=== PATIENT | male | born 1945 | race Caucasian/White ===

== ENCOUNTER 2018-10-26 11:26 | Inpatient (IN) | payer MEDICARE, OTHER, SELFPAY ==
[2018-10-26] VITALS (17 sets, daily range): BP systolic 117–137; BP diastolic 64–79; PULSE 88–109; RESP 18–28; TEMP 36.6–38.2; O2SAT 84–94; BMI 25.0
--- NOTE | 2018-10-26 11:46 | EKG12_ITS ---
Test Reason : GEN ILLNESS Blood Pressure : / mmHG Vent. Rate : 091 BPM Atrial Rate : 091 BPM P-R Int : 144 ms QRS Dur : 080 ms QT Int : 352 ms P-R-T Axes : 059 061 062 degrees QTc Int : 432 ms Normal sinus rhythm Nonspecific ST abnormality Abnormal ECG Confirmed by RANJITH REYEZ, GEORGIANA ([id number]), associate editor ARIEL RANGEL ([id number]) on 10/30/2018 4:55:21 PM Referred By: EZEQUIEL Confirmed By:GEORGIANA KASPER MD
--- NOTE | 2018-10-26 11:46 | RAD_ITS ---
STUDY: X-RAY CHEST REASON FOR EXAM: Male, 73 years old. Productive cough, shortness of breath and weakness. TECHNIQUE: PA and lateral views of the chest. COMPARISON: None. FINDINGS: EKG electrodes are seen. Increased markings are seen at the right lung base with areas of confluence suggestive of atelectasis and/or infiltrate. Blunting of the right costophrenic angle. Mild increased markings at the left lung base as well. Normal size heart. Normal mediastinum and alfredo. Normal visualized pulmonary arteries. There is atherosclerotic calcification of the aortic arch with tortuosity. There are diffuse degenerative changes of the visualized thoracic spine. Normal visualized ribs, clavicles, and shoulders. There is no demonstrated abnormality of the visualized soft tissue structures of the upper abdomen. RAD/Chest PA and Lateral IMPRESSION: Findings suggestive of right basilar atelectasis and/or infiltrate and mild atelectasis at the left lung base. Blunting of the right costophrenic angle. Electronically Signed: Glenroy Severino MD at 12:44 EST , Service support ,
[2018-10-26] MEDS: Ipratropium/Albuterol Sulfate 3 ML AMPUL.NEB INHALATION ×3 (12:04→23:13)
--- NOTE | 2018-10-26 12:07 | ED.RN ---
PT'S SPO2 88% ON ROOM AIR, PLACED ON 2 LITERS NC.
[2018-10-26 12:16] LABS: Absolute Lymphocyte Count 0.89 X10^3/ul (0.83-4.51); Basophil# 0.02 X10^3/uL; Basophil% 0.2 % (0-1); Eosinophil# 0.01 X10^3/uL; Eosinophils% 0.1 % (0-5); Hematocrit 42.3 % (40-54); Hemoglobin 13.6 g/dl (13.0-16.5); Lymphocyte # 0.89 X10^3/ul (4.0); Lymphocyte % 10.2 % (19-41); Mean Corp Hgb Conc 32.2 g/gl (32-36); Mean Corpuscular Hgb 28.6 pg (27.0-32.0); Mean Corpuscular Volume 89.1 fL (80-94); Mean Platelet Vol. 10.2 fl (6.2-12.0); Monocyte# 0.77 X10^3/uL; Monocyte% 8.9 % (0-10); Neutrophil # 6.97 X10^3/uL (2.7-7.7); Neutrophil % 80.3 % (47-70); Platelet Count 193 K/mm3 (150-450); Red Blood Count 4.75 M/mm3 (4.6-6.2); White Blood Count 8.7 K/mm3 (4.4-11.0)
--- NOTE | 2018-10-26 12:21 | ED.DCSUM_ITS ---
- ER Visit Summary Date of Service: 10/26/18 Chief Complaint: [] Runny nose harsh cough since Tuesday low pulse ox at urgent care History of Present Illness: The patient is a 73 M [] seen at urgent care today because of the above found to have low pulse ox of 88% after therapy 85%, x-ray shows bibasilar atelectasis, he denies history of COPD HI PE or DVT he indicates he is feeling fine Tuesday, and got sick with what sounds like a URI around Tuesday/ he has not had a flu vaccination he is p.o. intake has been reduced to solids he believes he is taking significant normal amounts of liquids bowel and bladder habits been normal cough is generally dry nonproductive, prior history for heavy smoking for years quit a few years ago per the but no history of COPD Physical Examination: [] Sat is 88% on room air he is afebrile General, no distress resting comfortably HEENT is generally unremarkable The neck is supple no adenopathy Cardiovascular, regular rate and rhythm Lungs, wheezing and rhonchi Abdomen, soft nontender Extremities, no clubbing cyanosis or edema Neurologic, awake alert answering questions appropriately moving all 4 extremities Test Results: [] Emergency Department Course and Treatment: [] Aerosols, screening labs IV fluids, the EKG screening labs generally unremarkable see those reports, chest x-ray shows appears to be and could be by lobar infiltrates after aerosols and therapy and IV fluids he was started IV antibiotics, he dropped his sats to 88% on room air is not known to require oxygen given the duration of his symptoms Treatment Plan: [] Disposition: [] Admit stable Impression: [] Lobar pneumonia, hypoxemia This note was generated with [employer] dictation software. It may contain incorrect words, spelling, and punctuation that were not noted in review of the chart prior to signing ED Disposition - Plan for ED Patient: Referrals: Suhail Elam MD [STAFF PHYSICIAN] -
[2018-10-26 12:23] LABS: POSITIVE COUNT NO; POSITIVE DIFFERENTIAL NO; POSITIVE MORPHOLOGY NO
[2018-10-26 12:27] LABS: Anion Gap 10 (5-15); BUN 28 mg/dL (7-18); BUN/Creat Ratio 29.4 RATIO (10-20); Chloride 101 mmol/L (98-107); Creatinine, Serum 0.95 mg/dL (0.70-1.30); EST Glomerular Filtration Rate 83 mL/min (>60); Est Glom Filt Rate - Afr Amer 100 mL/min (>60); Estimated Creatinine Clearance 64.36 ml/min; Glucose 98 mg/dL (74-106); Potassium 3.8 mmol/L (3.5-5.1); Sodium Level 137 mmol/L (136-145)
[2018-10-26 12:40] LABS: BNP,B-Type NATRIURETIC PEPTIDE 24.6 pg/mL (0-100)
--- NOTE | 2018-10-26 16:09 | NURSING ---
MED SURG COPD VS AWA OSPINA
--- NOTE | 2018-10-26 16:13 | PCM.HP.STD ---
Problem List (1) Tobacco abuse Status: Chronic (2) Benign essential HTN Status: Chronic History of Present Illness Date of Admission: 10/26/18 Chief Complaint: Shortness of breath, cough, fatigue The patient is a 73 year old M with PMH as below who presents after 5 days of shortness of breath, cough, fatigue. He states that he was doing well last week and then all of a sudden on Tuesday he developed shortness of breath and a cough. The cough has been mildly productive with yellow sputum only. He denies having any fevers or chills. He also progressively became more fatigued during the week and today decided to go see an urgent care for evaluation and when he arrived there they did a chest x-ray and said that he had atelectasis in his right base however when he took his vital signs he was hypoxic to 83% so they sent him to the ER. In the ER he was found to be hypoxic to about 87% and was started on oxygen via nasal cannula. Which he is not on at home. He does note that he smoked for the better part of 50 years, and he does not carry a diagnosis of COPD. He is afebrile, without a leukocytosis and the chest x-ray demonstrated possible atelectasis versus infiltrate on the right. Past Medical History Past Medical History (Chronic Problems): Chronic Problems Tobacco abuse (Chronic) Hx of renal calculi (Chronic) Benign essential HTN (Chronic) Allergies ibuprofen Allergy (Verified 10/26/18 11:27) Swelling acetaminophen [From Darvocet-N] Adverse Reaction (Verified 10/26/18 11:27) Nausea hydrochlorothiazide Adverse Reaction (Verified 10/26/18 11:27) Upset Stomach hydroxychloroquine sulfate [From Plaquenil] Adverse Reaction (Verified 10/26/18 11:27) Upset Stomach ketorolac tromethamine [From Toradol] Adverse Reaction (Verified 10/26/18 11:27) Upset Stomach piroxicam Adverse Reaction (Verified 10/26/18 11:27) Upset Stomach propoxyphene napsylate [From Darvocet-N] Adverse Reaction (Verified 10/26/18 11:27) Nausea ARTHRITIS MEDS Allergy (Uncoded 10/26/18 11:27) Upset Stomach Home Medications: Ambulatory Orders Medication Instructions Recorded Amlodipine [Norvasc] 10 mg PO DAILY 06/28/14 Atorvastatin Calcium 10 mg PO DAILY 10/26/18 Surgical History: total hip arthroplasty Lives: Spouse/ Significant Other Smoking Status: Former smoker Tobacco Use: Cigarettes Alcohol: None Drugs: None - *Family History Maternal History Items: No pertinent history Paternal History Items: No pertinent history Review of Systems Constitutional: Reports: Fatigue. Denies: Chills, Fever HEENT: Denies: Head Aches, Sinus Congestion, Sinus Drainage Cardiovascular: Denies: Chest Pain, Palpitations Respiratory: Reports: Cough, Shortness of Breath. Denies: Shortness of breath at rest, Sputum production Gastrointestinal: Denies: Abdominal Pain, Nausea, Vomiting Genitourinary: Denies: Dysuria Musculoskeletal: Denies: Joint Pain, Joint Tenderness Skin: Denies: Rash, Wounds Neurological: Denies: Numbness, Tingling, Focal weakness Psychiatric: Denies: Anxiety, Depression Hematologic/ Lymphatic: Denies: Easy Bruising, Easy Bleeding VTE Information - Inpt Only VTE Present on Admission: No - Physical Exam General: Alert, Oriented x3, Cooperative, No apparent distress HEENT: Atraumatic, PERRLA, EOMI, Normocephalic Oral: Dry Mucosa Neck: Supple, No JVD, Trachea Midline Lungs: Clear to auscultation, Normal air movement, No rhonchi, No wheeze, No rales, Diminished - Right greater than left Cardiovascular: Regular rate, Regular Rhythm, Normal S1, Normal S2, No murmurs Abdomen: Soft, Non Tender, Non-Distended, No Hepato-splenomegaly Extremities: No edema, Capillary Refill Less than 3 Seconds Skin: No rashes, No breakdown Neurological: Neuro grossly intact, Sensory exam intact to light touch and pain Psych/Mental Status: Normal Affect, Appropriate Vital Signs Temp Pulse Resp BP Pulse Ox 97.6 F L 94 28 H 136/79 H 90 10/26/18 16:00 10/26/18 16:00 10/26/18 16:00 10/26/18 16:00 10/26/18 16:00 Oxygen Flow Rate (L/min) 4 Oxygen Delivery Method Nasal Cannula Weight: 154 lb 15.759 oz Body Mass Index (BMI) 25.0 Microbiology Past 72 Hours 10/26/18 12:15 Influenza Types A,B Direct FA (JENNIFER) - Final Mucosa - Nose Laboratory Tests Past 24 Hrs 10/26/18 10/26/18 10/26/18 12:00 12:00 12:00 WBC 8.7 RBC 4.75 Hgb 13.6 Hct 42.3 MCV 89.1 MCH 28.6 MCHC 32.2 RDW 13.0 RDW Differential 42.0 Plt Count 193 MPV 10.2 Immature Gran % (Auto) 0.300 Neut % (Auto) 80.3 H Lymph % (Auto) 10.2 L Mcd[place] % (Auto) 8.9 Eos % (Auto) 0.1 Baso % (Auto) 0.2 Absolute Neuts (auto) 7.0 Absolute Lymphs (auto) 0.89 Total Counted Not Reportable Sodium 137 Potassium 3.8 Chloride 101 Carbon Dioxide 26.0 Anion Gap 10 BUN 28 H Creatinine 0.95 Estim Creat Clear Calc 64.36 Est GFR (MDRD) Af Amer 100 Est GFR (MDRD) Non-Af 83 BUN/Creatinine Ratio 29.4 H Glucose 98 Calcium 9.0 Troponin I < 0.015 B-Natriuretic Peptide 24.6 Assessment/Plan 1. Acute hypoxic respiratory failure secondary to community acquired pneumonia versus respiratory virus -We will continue with DuoNeb every 4 -Nasal cannula at 3 L wean as able -Respiratory panel is pending as is urine strep antigen and Legionella, influenza negative -No steroids at the moment since he does not have any expiratory wheezing -Continue with Rocephin and azithromycin -He will need PFTs as an outpatient once this current disease process resolves -BNP and troponin are negative in the ER 2. HTN/HLD -SBP stable in the 120s-130s -Continue with Norvasc and Lipitor 3. History of prostate cancer -he has undergone radiation and his PSAs have been stable DVT: Lovenox/SCDs Code Visit Inpatient E&M: 99618 Init Hosp L3
[2018-10-26] MEDS: Ceftriaxone 1 GM/50 ML BAG IV (17:15)
[2018-10-26] MEDS: guaiFENesin 1,200 MG Tablet 1200 MG PO (21:52)
[2018-10-26] MEDS: Atorvastatin Calcium 10 MG Tablet PO (21:52)
[2018-10-26] MEDS: Acetaminophen 500 MG Tablet 1000 MG PO (21:56)
--- NOTE | 2018-10-26 22:25 | NURSING ---
this RN took prn Ibuprofen order for fever. Order not entered d/t pt refusal (adverse reaction of ankle swelling.)
[2018-10-26] MEDS: 0.9% Normal Saline 1,000 ML 100 ML IV (22:58)
[2018-10-26 23:36] LABS: Allen Test POS; Base Excess -3 mmol/L (-2 to +2); Bicarbonate 21.8 mmol/L (22-26); Blood Gas Specimen Type ART; FI02 50; PO2 66 mmHG (75-100); SITE R Radial; SO2 93 % (95-99); Time Given 2315; Total Carbon Dioxide 23 mmol/L; pH 7.39 (7.35-7.45)
[2018-10-27] VITALS (11 sets, daily range): BP systolic 113–127; BP diastolic 66–73; PULSE 79–93; RESP 16–18; TEMP 36.6–37.1; O2SAT 88–95
[2018-10-27] MEDS: Acetaminophen 500 MG Tablet 1000 MG PO ×3 (05:17→22:04)
[2018-10-27 06:44] LABS: Absolute Lymphocyte Count 0.76 X10^3/ul (0.83-4.51); Absolute Neutrophil Count 6.7 X10^3/uL (2.0-7.7); Basophil# 0.02 X10^3/uL; Basophil% 0.2 % (0-1); Eosinophil# 0.03 X10^3/uL; Eosinophils% 0.4 % (0-5); Hematocrit 35.2 % (40-54); Hemoglobin 11.6 g/dl (13.0-16.5); Lymphocyte # 0.76 X10^3/ul (4.0); Lymphocyte % 9.3 % (19-41); Mean Corpuscular Hgb 29.4 pg (27.0-32.0); Mean Corpuscular Volume 89.3 fL (80-94); Mean Platelet Vol. 10.2 fl (6.2-12.0); Monocyte# 0.61 X10^3/uL; Monocyte% 7.4 % (0-10); Neutrophil # 6.73 X10^3/uL (2.7-7.7); Neutrophil % 82.2 % (47-70); Platelet Count 185 K/mm3 (150-450); RBC Distribution Width CV 12.8 % (11.6-14.6); RBC Distribution Width SD 40.9 fl (35.1-43.9); Red Blood Count 3.94 M/mm3 (4.6-6.2); White Blood Count 8.2 K/mm3 (4.4-11.0)
[2018-10-27 06:46] LABS: POSITIVE COUNT NO; POSITIVE DIFFERENTIAL NO; POSITIVE MORPHOLOGY NO
[2018-10-27 06:50] LABS: Anion Gap 9 (5-15); BUN 20 mg/dL (7-18); BUN/Creat Ratio 29.8 RATIO (10-20); Calcium,Total 8.2 mg/dL (8.5-10.1); Chloride 105 mmol/L (98-107); Creatinine, Serum 0.67 mg/dL (0.70-1.30); EST Glomerular Filtration Rate 124 mL/min (>60); Est Glom Filt Rate - Afr Amer 150 mL/min (>60); Estimated Creatinine Clearance 61.14 ml/min; Glucose 91 mg/dL (74-106); Potassium 3.3 mmol/L (3.5-5.1); Sodium Level 138 mmol/L (136-145)
[2018-10-27] MEDS: Ipratropium/Albuterol Sulfate 3 ML AMPUL.NEB INHALATION ×4 (06:54→19:22)
[2018-10-27] MEDS: Enoxaparin 40 MG/0.4 ML Syringe SC (09:38)
[2018-10-27] MEDS: Ceftriaxone 1 GM/50 ML BAG IV (09:38)
[2018-10-27] MEDS: guaiFENesin 1,200 MG Tablet 1200 MG PO ×2 (09:38→22:04)
--- NOTE | 2018-10-27 13:11 | CASEMGMT ---
SW spoke w/pt, and daughter in room, asked if they can bring in POA and LW papers when able, as they are not on the chart. Pt and family state understanding. DAHIANA Noble, REGROOVER
[2018-10-27] MEDS: 0.9% NaCl Peripheral Flush Adult/Peds IV (14:12)
--- NOTE | 2018-10-27 14:21 | CASEMGMT ---
RN CM Assessment Introduced role of RN CM to patient, /family at bedside. Patient is alert, oriented and able to participate in RN CM Assessment. Care providers, pharmacy, and demographics verified. Presentation: Admitted for URI, Hypoxia 87% in ER, 83% at UC. CC: SOB, Cough, Fatigue. PCP: Dr Deni Verma Specialists: Uro- Dr Raghu Fritz, GI- Dr Bryan Preferred Pharmacy: [facility] Insurance: Medicare A&B, [employer] Prescription Benefit: Yes LNOK: Sonia Moore Living Arrangements: Retired, Lives with in a SS Home, Independent with ambulation and ADL's. Transportation: Patient drives, to drive on [place] [address] [phone]. DME: None in past, prefer to use DME Company in network with secondary insurance- AB [employer]asty Search for [facility]- [facility] [place] HH: [facility] in past, prefers what is in network with insurance SNF: None in past, no preference on facility. DC PLAN: Home with with possible Home O2. Explained to patient and family about Home O2, acknowledge and agree. Provided [facility] [place]'s contact information, all questions/concerns addressed. Yandel Campbell RNCM
--- NOTE | 2018-10-27 15:41 | PCM.PN.HOSP ---
Subjective: Patient was seen and examined. Admits to feeling improved. Remains on 4 L of oxygen. Coughing up yellowish sputum. Denies any fever or chills or dizziness or chest pain. Vitals/I&O's: Vital Signs Temp Pulse Resp BP Pulse Ox 97.9 F 89 18 113/73 94 10/27/18 14:10 10/27/18 14:10 10/27/18 14:10 10/27/18 14:10 10/27/18 14:10 Oxygen Flow Rate (L/min) 2 Oxygen Delivery Method Nasal Cannula Weight: 70 kg Body Mass Index (BMI) 25.0 Intake and Output for Last 24 Hours 10/25/18 10/26/18 10/27/18 23:59 23:59 23:59 Intake Total 2440 / 2440 Balance 2440 / 2440 General: Alert, Oriented x3, Cooperative, No apparent distress, - HEENT: Atraumatic, PERRLA, EOMI, Normocephalic Oral: Moist Mucosa - 4 L of oxygen Neck: Supple Lungs: Diminished, Rales - At the right lower lung sounds Cardiovascular: Regular rate, Regular Rhythm, Normal S1, Normal S2, No murmurs Abdomen: Bowel Sounds Present, Soft, Non Tender, Non-Distended, No Hepato-splenomegaly Extremities: No edema Skin: No rashes, No breakdown Musculoskeletal: No Tenderness to Palpation of Joints or Extremities Lymphatic: No Cervical, Supraclavicular, or Inguinal Adenopathy Neurological: Cranial nerves II-XII grossly intact, Neuro grossly intact Psych/Mental Status: Normal Affect, Appropriate Microbiology Past 72 Hours 10/26/18 22:30 Mucosa - Nasopharyngeal Respiratory Panel (PCR) - Final Human [place] 10/26/18 19:31 Urine, Clean Catch Streptococcus pneumoniae Antigen (M - Final 10/26/18 19:31 Urine, Clean Catch Legionella Antigen - Final 10/26/18 12:15 Mucosa - Nose Influenza Types A,B Direct FA (JENNIFER) - Final Laboratory Results 10/26/18 17:15: Lactic Acid 1.0 10/26/18 23:29: Specimen Type ART, Sample Site R Radial, pH 7.39, Bicarbonate Actual 21.8 L, POC Total CO2 23, Base Excess -3 L, O2 Saturation 93 L, O2 % 50, ABG pCO2 36.0, ABG pO2 66 L, Griffin Test POS, O2 Delivery Device Vent Mask, Blood Gas Notified Whom ALYSA REYEZ, Blood Gas Notified Time 2312 10/27/18 06:25: WBC 8.2, RBC 3.94 L, Hgb 11.6 L, Hct 35.2 L, MCV 89.3, MCH 29.4, MCHC 33.0, RDW 12.8, RDW Differential 40.9, Plt Count 185, MPV 10.2, Immature Gran % (Auto) 0.500, Neut % (Auto) 82.2 H, Lymph % (Auto) 9.3 L, [place] % (Auto) 7.4, Eos % (Auto) 0.4, Baso % (Auto) 0.2, Absolute Neuts (auto) 6.7, Absolute Lymphs (auto) 0.76 L, Total Counted Not Reportable 10/27/18 06:25: Sodium 138, Potassium 3.3 L, Chloride 105, Carbon Dioxide 24.0, Anion Gap 9, BUN 20 H, Creatinine 0.67 L, Estim Creat Clear Calc 61.14, Est GFR (MDRD) Af Amer 150, Est GFR (MDRD) Non-Af 124, BUN/Creatinine Ratio 29.8 H, Glucose 91, Calcium 8.2 L Current Medications Acetaminophen (Tylenol) 1,000 mg PO Q8 [facility] Last Admin: 10/27/18 14:11 Dose: 1,000 mg Albuterol/Ipratropium (Duoneb) 3 ml INHALATION Q4HWA.RT [facility] Last Admin: 10/27/18 15:06 Dose: 3 ml Amlodipine Besylate (Norvasc) 10 mg PO DAILY [facility] Atorvastatin Calcium (Lipitor) 10 mg PO QHS [facility] Last Admin: 10/26/18 21:52 Dose: 10 mg Cholecalciferol (Vitamin D) 1,000 unit PO DAILY [facility] Docusate Sodium (Colace) 100 mg PO DAILY [facility] Enoxaparin Sodium (Lovenox) 40 mg SC DAILY@1000 [facility] Last Admin: 10/27/18 09:38 Dose: 40 mg Folic [facility] ([facility] Acid) [facility] Guaifenesin (Mucinex) 1,200 mg PO BID [facility] Last Admin: 10/27/18 09:38 Dose: 1,200 mg Azithromycin 500 mg/ Dextrose 255 mls @ 250 mls/hr IV Q24 [facility] Last Admin: 02/22/19 10:37 Dose: 250 mls/hr Ceftriaxone Sodium (Rocephin) 1 gm in 50 mls @ 100 mls/hr IV Q24 [facility] Last Admin: 10/27/18 09:38 Dose: 100 mls/hr Magnesium Hydroxide (Milk Of Magnesia) 30 ml PO DAILY PRN PRN PRN Reason: Constipation Sodium Chloride () 5 - 15 ml IV UD PRN PRN Reason: SALINE FLUSH Last Admin: 10/27/18 14:12 Dose: 10 ml Medical Necessity - Tobacco Use Smoking Status: Former smoker Tobacco Use: Cigarettes Assessment/Plan 73-year-old male with past medical history of hypertension, hyperlipidemia, history of kidney stones comes in with complaints of cough and shortness of breath and has been managed as acute respiratory failure secondary to community-acquired pneumonia. 1. Acute hypoxic respiratory failure secondary to community-acquired pneumonia and acute human [place] pneumo virus bronchitis Patient is not on oxygen at home, currently on 4 L of oxygen, will continue on breathing treatment, continue to wean off oxygen, encourage use of incentive spirometer 2. Community-acquired pneumonia versus Human meta pneumo viral bronchitis, questionable infiltrate seen on x-ray, patient feels clinically improved Continue azithromycin and ceftriaxone for now, repeat chest x-ray in a.m. 3. Hypokalemia, replaced 4. Hypertension, continue home medication 5. Hyperlipidemia, statin 6. DVT prophylaxis with Lovenox subcu 7. Disposition: Possible DC in a.m. if patient is improved Code Visit Inpatient E&M: 57757 Subs Hosp L2
--- NOTE | 2018-10-27 15:51 | PN_ITS ---
Subjective: Patient was seen and examined. Admits to feeling improved. Remains on 4 L of oxygen. Coughing up yellowish sputum. Denies any fever or chills or dizziness or chest pain. Vitals/I&O's: Vital Signs Temp Pulse Resp BP Pulse Ox 97.9 F 89 18 113/73 94 10/27/18 14:10 10/27/18 14:10 10/27/18 14:10 10/27/18 14:10 10/27/18 14:10 Oxygen Flow Rate (L/min) 2 Oxygen Delivery Method Nasal Cannula Weight: 70 kg Body Mass Index (BMI) 25.0 Intake and Output for Last 24 Hours 10/25/18 10/26/18 10/27/18 23:59 23:59 23:59 Intake Total 2440 / 2440 Balance 2440 / 2440 General: Alert, Oriented x3, Cooperative, No apparent distress, - HEENT: Atraumatic, PERRLA, EOMI, Normocephalic Oral: Moist Mucosa - 4 L of oxygen Neck: Supple Lungs: Diminished, Rales - At the right lower lung sounds Cardiovascular: Regular rate, Regular Rhythm, Normal S1, Normal S2, No murmurs Abdomen: Bowel Sounds Present, Soft, Non Tender, Non-Distended, No Hepato- splenomegaly Extremities: No edema Skin: No rashes, No breakdown Musculoskeletal: No Tenderness to Palpation of Joints or Extremities Lymphatic: No Cervical, Supraclavicular, or Inguinal Adenopathy Neurological: Cranial nerves II-XII grossly intact, Neuro grossly intact Psych/Mental Status: Normal Affect, Appropriate Microbiology Past 72 Hours 10/26/18 22:30 Mucosa - Nasopharyngeal Respiratory Panel (PCR) - Final Human [place] 10/26/18 19:31 Urine, Clean Catch Streptococcus pneumoniae Antigen (M - Final 10/26/18 19:31 Urine, Clean Catch Legionella Antigen - Final 10/26/18 12:15 Mucosa - Nose Influenza Types A,B Direct FA (JENNIFER) - Final Laboratory Results 10/26/18 17:15: Lactic Acid 1.0 10/26/18 23:29: Specimen Type ART, Sample Site R Radial, pH 7.39, Bicarbonate Actual 21.8 L, POC Total CO2 23, Base Excess -3 L, O2 Saturation 93 L, O2 % 50, ABG pCO2 36.0, ABG pO2 66 L, Griffin Test POS, O2 Delivery Device Vent Mask, Blood Gas Notified Whom ALYSA REYEZ, Blood Gas Notified Time 2317 10/27/18 06:25: WBC 8.2, RBC 3.94 L, Hgb 11.6 L, Hct 35.2 L, MCV 89.3, MCH 29.4, MCHC 33.0, RDW 12.8, RDW Differential 40.9, Plt Count 185, MPV 10.2, Immature Gran % (Auto) 0.500, Neut % (Auto) 82.2 H, Lymph % (Auto) 9.3 L, [place] % (Auto) 7.4, Eos % (Auto) 0.4, Baso % (Auto) 0.2, Absolute Neuts (auto) 6.7, Absolute Lymphs (auto) 0.76 L, Total Counted Not Reportable 10/27/18 06:25: Sodium 138, Potassium 3.3 L, Chloride 105, Carbon Dioxide 24.0, Anion Gap 9, BUN 20 H, Creatinine 0.67 L, Estim Creat Clear Calc 61.14, Est GFR (MDRD) Af Amer 150, Est GFR (MDRD) Non-Af 124, BUN/Creatinine Ratio 29.8 H, Glucose 91, Calcium 8.2 L Current Medications Acetaminophen (Tylenol) 1,000 mg PO Q8 [facility] Last Admin: 10/27/18 14:11 Dose: 1,000 mg Albuterol/Ipratropium (Duoneb) 3 ml INHALATION Q4HWA.RT [facility] Last Admin: 10/27/18 15:06 Dose: 3 ml Amlodipine Besylate (Norvasc) 10 mg PO DAILY [facility] Atorvastatin Calcium (Lipitor) 10 mg PO QHS [facility] Last Admin: 10/26/18 21:52 Dose: 10 mg Cholecalciferol (Vitamin D) 1,000 unit PO DAILY [facility] Docusate Sodium (Colace) 100 mg PO DAILY [facility] Enoxaparin Sodium (Lovenox) 40 mg SC DAILY@1000 [facility] Last Admin: 10/27/18 09:38 Dose: 40 mg [facility]olic [facility] ([facility] Acid) [facility] Guaifenesin (Mucinex) 1,200 mg PO BID [facility] Last Admin: 10/27/18 09:38 Dose: 1,200 mg Azithromycin 500 mg/ Dextrose 255 mls @ 250 mls/hr IV Q24 [facility] Last Admin: 02/22/19 10:37 Dose: 250 mls/hr Ceftriaxone Sodium (Rocephin) 1 gm in 50 mls @ 100 mls/hr IV Q24 [facility] Last Admin: 10/27/18 09:38 Dose: 100 mls/hr Magnesium Hydroxide (Milk Of Magnesia) 30 ml PO DAILY PRN PRN PRN Reason: Constipation Sodium Chloride () 5 - 15 ml IV UD PRN PRN Reason: SALINE FLUSH Last Admin: 10/27/18 14:12 Dose: 10 ml Medical Necessity - Tobacco Use Smoking Status: Former smoker Tobacco Use: Cigarettes Assessment/Plan 73-year-old male with past medical history of hypertension, hyperlipidemia, history of kidney stones comes in with complaints of cough and shortness of breath and has been managed as acute respiratory failure secondary to community- acquired pneumonia. 1. Acute hypoxic respiratory failure secondary to community-acquired pneumonia and acute human [place] pneumo virus bronchitis Patient is not on oxygen at home, currently on 4 L of oxygen, will continue on breathing treatment, continue to wean off oxygen, encourage use of incentive spirometer 2. Community-acquired pneumonia versus Human meta pneumo viral bronchitis, questionable infiltrate seen on x-ray, patient feels clinically improved Continue azithromycin and ceftriaxone for now, repeat chest x-ray in a.m. 3. Hypokalemia, replaced 4. Hypertension, continue home medication 5. Hyperlipidemia, statin 6. DVT prophylaxis with Lovenox subcu 7. Disposition: Possible DC in a.m. if patient is improved Code Visit Inpatient E&M: 24094 Subs Hosp L2
[2018-10-27] MEDS: Folic Acid 1 MG Tablet 2 MG PO (16:56)
[2018-10-27] MEDS: amLODIPine 10 MG Tablet PO (16:56)
[2018-10-27] MEDS: Docusate Sodium 100 MG Capsule PO (16:56)
[2018-10-27] MEDS: Atorvastatin Calcium 10 MG Tablet PO (16:59)
[2018-10-28 02:14] VITALS: BP 121/64; PULSE 78; RESP 18; TEMP 36.9; O2SAT 94
--- NOTE | 2018-10-28 05:40 | RAD_ITS ---
STUDY: X-RAY CHEST REASON FOR EXAM: Male, 73 years old. Shortness of breath, dyspnea TECHNIQUE: PA and lateral views of the chest. COMPARISON: 10/26/2018 FINDINGS: Right hemidiaphragm remains elevated. Linear parenchymal densities in both lung bases again identified with increased parenchymal opacity just above the left hemidiaphragm as compared to the prior study. There is no demonstrated pleural abnormality. Normal size heart. Normal mediastinum and alfredo. Normal visualized pulmonary arteries. There is atherosclerotic calcification of the aortic arch with tortuosity. There is demineralization of the osseous structures. Normal visualized ribs, clavicles, and shoulders. There is no demonstrated abnormality of the visualized soft tissue structures of the upper abdomen. RAD/Chest PA and Lateral IMPRESSION: 1. Suspect developing infiltrate or atelectasis in the left lung base. 2. Underlying basilar fibrotic changes. Electronically Signed: Galen Navarro MD at 13:19 EST , Service support ,
[2018-10-28] MEDS: Acetaminophen 500 MG Tablet 1000 MG PO (05:53)
[2018-10-28 07:06] LABS: Absolute Lymphocyte Count 0.98 X10^3/ul (0.83-4.51); Absolute Neutrophil Count 5.9 X10^3/uL (2.0-7.7); Basophil# 0.03 X10^3/uL; Basophil% 0.4 % (0-1); Eosinophil# 0.06 X10^3/uL; Eosinophils% 0.8 % (0-5); Hematocrit 36.4 % (40-54); Hemoglobin 11.6 g/dl (13.0-16.5); Lymphocyte # 0.98 X10^3/ul (4.0); Lymphocyte % 12.9 % (19-41); Mean Corp Hgb Conc 31.9 g/gl (32-36); Mean Corpuscular Hgb 28.6 pg (27.0-32.0); Mean Corpuscular Volume 89.9 fL (80-94); Mean Platelet Vol. 10.5 fl (6.2-12.0); Monocyte# 0.56 X10^3/uL; Monocyte% 7.3 % (0-10); Neutrophil # 5.91 X10^3/uL (2.7-7.7); Neutrophil % 77.6 % (47-70); POSITIVE COUNT NO; POSITIVE DIFFERENTIAL NO; POSITIVE MORPHOLOGY NO; Platelet Count 226 K/mm3 (150-450); RBC Distribution Width CV 13.3 % (11.6-14.6); RBC Distribution Width SD 43.6 fl (35.1-43.9); Red Blood Count 4.05 M/mm3 (4.6-6.2); White Blood Count 7.6 K/mm3 (4.4-11.0)
[2018-10-28 07:14] LABS: Anion Gap 8 (5-15); BUN 15 mg/dL (7-18); BUN/Creat Ratio 20.4 RATIO (10-20); Calcium,Total 8.7 mg/dL (8.5-10.1); Chloride 106 mmol/L (98-107); Creatinine, Serum 0.74 mg/dL (0.70-1.30); EST Glomerular Filtration Rate 111 mL/min (>60); Est Glom Filt Rate - Afr Amer 135 mL/min (>60); Estimated Creatinine Clearance 61.14 ml/min; Glucose 90 mg/dL (74-106); Potassium 3.6 mmol/L (3.5-5.1); Sodium Level 142 mmol/L (136-145)
[2018-10-28 07:45] VITALS: BP 114/70; PULSE 82; RESP 18; TEMP 36.4; O2SAT 92
[2018-10-28] MEDS: Ipratropium/Albuterol Sulfate 3 ML AMPUL.NEB INHALATION ×2 (07:49→12:16)
[2018-10-28 07:50] VITALS: PULSE 80; RESP 16; O2SAT 91
[2018-10-28] MEDS: Ceftriaxone 1 GM/50 ML BAG IV (09:28)
[2018-10-28] MEDS: 0.9% NaCl Peripheral Flush Adult/Peds IV (09:28)
[2018-10-28] MEDS: Enoxaparin 40 MG/0.4 ML Syringe SC (09:28)
[2018-10-28] MEDS: guaiFENesin 1,200 MG Tablet 1200 MG PO (09:33)
--- NOTE | 2018-10-28 11:11 | PCM.DC ---
- Discharge Diagnoses Reason(s) for Visit for Discharge Instructions: Cough, shortness You will use the following diet at home:: Cardiac Your food should be the consistency of: Regular Your liquids should be the consistency of: Regular/Thin Discharge Activity: Return to Normal Activity Additional Instructions: You are being discharged on oxygen. Stay away from open flames whilst on the oxygen. Continue to use your inhaler as needed for cough spells and shortness of breath. Follow-up with your PCP for results of your blood cultures. Continue to keep yourself hydrated. Follow-up with your primary doctor and marketing analytics specialist for re-evaluation of your continued need for oxygen and also pulmonary function testing in 6-8 weeks time Allergies/Adverse Reactions: Allergies ibuprofen Allergy (Verified 10/26/18 16:24) Swelling OF ANKLES hydrochlorothiazide Adverse Reaction (Verified 10/26/18 11:27) Upset Stomach hydroxychloroquine sulfate [From Plaquenil] Adverse Reaction (Verified 10/26/18 11:27) Upset Stomach ketorolac tromethamine [From Toradol] Adverse Reaction (Verified 10/26/18 11:27) Upset Stomach piroxicam Adverse Reaction (Verified 10/26/18 11:27) Upset Stomach propoxyphene napsylate [From Darvocet-N] Adverse Reaction (Verified 10/26/18 11:27) Nausea ARTHRITIS MEDS Adverse Reaction (Uncoded 10/26/18 16:24) Upset Stomach Medications to take at Discharge Amlodipine [Norvasc] 10 mg PO DAILY 06/28/14 Acetaminophen [Tylenol Arthritis] 1,300 mg PO BID 10/26/18 Atorvastatin Calcium 10 mg PO DAILY 10/26/18 Cholecalciferol (VIT D3) [Vitamin D3] 1,000 unit PO DAILY 10/26/18 Docusate Sodium [Colace] 100 mg PO DAILY 10/26/18 Folic Acid 2 mg PO DAILY 10/26/18 Albuterol IH (ProAir) [Proair Hfa] 1 - 2 puff INHALATION Q4H PRN PRN #1 inhaler 10/28/18 Amoxicillin/Potassium Clav [Augmentin 875-125 Tablet] 1 each PO BID #10 tablet 10/28/18 Guaifenesin [Mucinex] 1,200 mg PO BID PRN #20 tablet 10/28/18 The following prescriptions were given: Albuterol IH (ProAir) [Proair Hfa] 1 - 2 puff INHALATION Q4H PRN PRN #1 inhaler PRN Reason: Sob &/Or Wheezing Amoxicillin/Potassium Clav [Augmentin 875-125 Tablet] 1 each PO BID #10 tablet Guaifenesin [Mucinex] 1,200 mg PO BID PRN #20 tablet PRN Reason: Cough Primary Care Physician: Suhail Elam MD [STAFF PHYSICIAN] - Please follow up with your Primary Care Physician in: within 1-2 weeks Test Results: Test results from this visit will be discussed in further detail at your follow-up appointment, if applicable. Please Follow Up With: Avel Siu MD When: withoin 1-2 weeks Proposed Discharge Date: 10/28/18
--- NOTE | 2018-10-28 11:14 | DCINST_ITS ---
- Discharge Diagnoses Reason(s) for Visit for Discharge Instructions: Cough, shortness You will use the following diet at home:: Cardiac Your food should be the consistency of: Regular Your liquids should be the consistency of: Regular/Thin Discharge Activity: Return to Normal Activity Additional Instructions: You are being discharged on oxygen. Stay away from open flames whilst on the oxygen. Continue to use your inhaler as needed for cough spells and shortness of breath. Follow-up with your PCP for results of your blood cultures. Continue to keep yourself hydrated. Follow-up with your primary doctor and side laster for re-evaluation of your continued need for oxygen and also pulmonary function testing in 6-8 weeks time Allergies/Adverse Reactions: Allergies ibuprofen Allergy (Verified 10/26/18 16:24) Swelling OF ANKLES hydrochlorothiazide Adverse Reaction (Verified 10/26/18 11:27) Upset Stomach hydroxychloroquine sulfate [From Plaquenil] Adverse Reaction (Verified 10/26/18 11:27) Upset Stomach ketorolac tromethamine [From Toradol] Adverse Reaction (Verified 10/26/18 11:27) Upset Stomach piroxicam Adverse Reaction (Verified 10/26/18 11:27) Upset Stomach propoxyphene napsylate [From Darvocet-N] Adverse Reaction (Verified 10/26/18 11:27) Nausea ARTHRITIS MEDS Adverse Reaction (Uncoded 10/26/18 16:24) Upset Stomach Medications to take at Discharge Amlodipine [Norvasc] 10 mg PO DAILY 06/28/14 Acetaminophen [Tylenol Arthritis] 1,300 mg PO BID 10/26/18 Atorvastatin Calcium 10 mg PO DAILY 10/26/18 Cholecalciferol (VIT D3) [Vitamin D3] 1,000 unit PO DAILY 10/26/18 Docusate Sodium [Colace] 100 mg PO DAILY 10/26/18 Folic Acid 2 mg PO DAILY 10/26/18 Albuterol IH (ProAir) [Proair Hfa] 1 - 2 puff INHALATION Q4H PRN PRN #1 inhaler 10/28/18 Amoxicillin/Potassium Clav [Augmentin 875-125 Tablet] 1 each PO BID #10 tablet 10/28/18 Guaifenesin [Mucinex] 1,200 mg PO BID PRN #20 tablet 10/28/18 The following prescriptions were given: Albuterol IH (ProAir) [Proair Hfa] 1 - 2 puff INHALATION Q4H PRN PRN #1 inhaler PRN Reason: Sob &/Or Wheezing Amoxicillin/Potassium Clav [Augmentin 875-125 Tablet] 1 each PO BID #10 tablet Guaifenesin [Mucinex] 1,200 mg PO BID PRN #20 tablet PRN Reason: Cough Primary Care Physician: Suhail Elam MD [STAFF PHYSICIAN] - Please follow up with your Primary Care Physician in: within 1-2 weeks Test Results: Test results from this visit will be discussed in further detail at your follow- up appointment, if applicable. Please Follow Up With: Avel Siu MD When: withoin 1-2 weeks Proposed Discharge Date: 10/28/18
--- NOTE | 2018-10-28 11:14 | PCM.DC.SUM ---
Discharge Date and Diagnosis Date of Admission: 10/26/18 Date of Discharge: 10/28/18 - Primary Discharge Diagnosis Acute hypoxic respiratory failure Community-acquired pneumonia Acute human Butler pneumo virus bronchitis Hypokalemia - Secondary Discharge Diagnosis Chronic Problems Tobacco abuse (Chronic) Hx of renal calculi (Chronic) Benign essential HTN (Chronic) Hyperlipidemia Hospital Course and Treatment Imaging Results: 10/28/18 05:40 Chest PA and Lateral [RAD] AM (NON MEDS) Clinical Impression(s) from Imaging Studies Chest X-Ray 10/26/18 11:46 IMPRESSION: Findings suggestive of right basilar atelectasis and/or infiltrate and mild atelectasis at the left lung base. Blunting of the right costophrenic angle. Electronically Signed: Glenroy Severino MD at 12:44 EST , Service support , Chest X-Ray 10/28/18 05:40 IMPRESSION: 1. Suspect developing infiltrate or atelectasis in the left lung base. 2. Underlying basilar fibrotic changes. Electronically Signed: Galen Navarro MD at 13:19 EST , Service support , Clinical Impression(s) from Imaging Studies Chest X-Ray 10/26/18 11:46 IMPRESSION: Findings suggestive of right basilar atelectasis and/or infiltrate and mild atelectasis at the left lung base. Blunting of the right costophrenic angle. Electronically Signed: Glenroy Severino MD at 12:44 EST , Service support , Chest X-Ray 10/28/18 05:40 IMPRESSION: 1. Suspect developing infiltrate or atelectasis in the left lung base. 2. Underlying basilar fibrotic changes. Electronically Signed: Galen Navarro MD at 13:19 EST , Service support , Operations: None Procedures: None Summary of Care Provided: 73-year-old male with past medical history of hypertension, hyperlipidemia, history of kidney stones comes in with complaints of cough and shortness of breath and has been managed as acute respiratory failure secondary to community-acquired pneumonia. Patient was admitted to the telemetry bed and started on gentle IV fluids. His respiratory panel was positive for Human metapneumo virus. His admitting chest x-ray was suggestive of atelectasis versus pneumonia. Repeat x-ray in this morning was suggestive of right lower lobe pneumonia. Patient was managed on IV ceftriaxone and azithromycin with improvement. He had a low-grade fever on the night prior to his discharge. Patient felt much improved. He was discharged on Augmentin to complete 1 week total antibiotic. He had hypokalemia of 3.3 a day after his admission, that was resolved with treatment. Subjective: On the day of discharge, patient felt improved, had a low-grade fever the night before. He denied any worsening chest pain or shortness of breath. Cough is productive of whitish sputum. He is down to 2 L of oxygen. Objective: General: Alert, Oriented x3, Cooperative, No apparent distress, on 2 L of oxygen HEENT: Atraumatic, PERRLA, EOMI, Normocephalic Oral: Moist Mucosa - 4 L of oxygen Neck: Supple for sciatica lung bases Lungs: Diminished, especially at the lung bases Cardiovascular: Regular rate, Regular Rhythm, Normal S1, Normal S2, No murmurs Abdomen: Bowel Sounds Present, Soft, Non Tender, Non-Distended, No Hepato-splenomegaly Extremities: No edema Skin: No rashes, No breakdown Musculoskeletal: No Tenderness to Palpation of Joints or Extremities Lymphatic: No Cervical, Supraclavicular, or Inguinal Adenopathy Neurological: Cranial nerves II-XII grossly intact, Neuro grossly intact Psych/Mental Status: Normal Affect, Appropriate - Physical Exam Vital Signs Temp Pulse Resp BP Pulse Ox 97.5 F L 80 16 114/70 91 10/28/18 07:45 10/28/18 07:50 10/28/18 07:50 10/28/18 07:45 10/28/18 07:50 Oxygen Flow Rate (L/min) 2 Oxygen Delivery Method Nasal Cannula Weight: 70 kg Body Mass Index (BMI) 25.0 Intake and Output for Last 24 Hours 10/26/18 10/27/18 10/28/18 23:59 23:59 23:59 Intake Total 2890 / 2890 680 / 680 Balance 2890 / 2890 680 / 680 Microbiology Past 72 Hours 10/26/18 22:30 Respiratory Panel (PCR) - Final Mucosa - Nasopharyngeal Human [place] 10/26/18 19:31 Streptococcus pneumoniae Antigen (M - Final Urine, Clean Catch 10/26/18 19:31 Legionella Antigen - Final Urine, Clean Catch 10/26/18 12:15 Influenza Types A,B Direct FA (JENNIFER) - Final Mucosa - Nose Laboratory Tests Past 24 Hrs 10/28/18 10/28/18 06:17 06:17 WBC 7.6 RBC 4.05 L Hgb 11.6 L Hct 36.4 L MCV 89.9 MCH 28.6 MCHC 31.9 L RDW 13.3 RDW Differential 43.6 Plt Count 226 MPV 10.5 Immature Gran % (Auto) 1.000 H Neut % (Auto) 77.6 H Lymph % (Auto) 12.9 L Chaves % (Auto) 7.3 Eos % (Auto) 0.8 Baso % (Auto) 0.4 Absolute Neuts (auto) 5.9 Absolute Lymphs (auto) 0.98 Total Counted Not Reportable Sodium 142 Potassium 3.6 Chloride 106 Carbon Dioxide 28.0 Anion Gap 8 BUN 15 Creatinine 0.74 Estim Creat Clear Calc 61.14 Est GFR (MDRD) Af Amer 135 Est GFR (MDRD) Non-Af 111 BUN/Creatinine Ratio 20.4 H Glucose 90 Calcium 8.7 Discharge Diet: Low fat/ Low Cholesterol, 2000 mg Sodium Diet Discharge Activity: Return to Normal Activity Home Medications: Medications to take at Discharge Amlodipine [Norvasc] 10 mg PO DAILY 06/28/14 Acetaminophen [Tylenol Arthritis] 1,300 mg PO BID 10/26/18 Atorvastatin Calcium 10 mg PO DAILY 10/26/18 Cholecalciferol (VIT D3) [Vitamin D3] 1,000 unit PO DAILY 10/26/18 Docusate Sodium [Colace] 100 mg PO DAILY 10/26/18 Folic Acid 2 mg PO DAILY 10/26/18 Albuterol IH (ProAir) [Proair Hfa] 1 - 2 puff INHALATION Q4H PRN PRN #1 inhaler 10/28/18 Amoxicillin/Potassium Clav [Augmentin 875-125 Tablet] 1 each PO BID #10 tablet 10/28/18 Guaifenesin [Mucinex] 1,200 mg PO BID PRN #20 tablet 10/28/18 Following Prescrptions Were Given to Patient: Albuterol IH (ProAir) [Proair Hfa] 1 - 2 puff INHALATION Q4H PRN PRN #1 inhaler PRN Reason: Sob &/Or Wheezing Amoxicillin/Potassium Clav [Augmentin 875-125 Tablet] 1 each PO BID #10 tablet Guaifenesin [Mucinex] 1,200 mg PO BID PRN #20 tablet PRN Reason: Cough Primary Care Physician: Suhail Elam MD [STAFF PHYSICIAN] - Please follow up with your Primary Care Physician in: within 1-2 weeks Please Follow Up With: Avel Siu MD When: withoin 1-2 weeks Disposition: Home Minutes spent on discharge:: 40 Patient Condition:: Stable Medical Necessity - Tobacco Use Smoking Status: Former smoker Tobacco Use: Cigarettes Meaningful Use Info Meaningful Use Diagnoses (Choose all that apply): None applicable Code Visit Inpatient E&M: 41828 Disch Hosp
[2018-10-28 11:33] VITALS: O2SAT 87; O2SAT 92
[2018-10-28 12:17] VITALS: PULSE 80; RESP 16
[2018-10-28 13:00] VITALS: BP 114/86; PULSE 87; RESP 16; TEMP 36.6; O2SAT 95
== END 2018-10-28 14:14 | disposition home or self-care (01) | DRG 193 ==
LOC: ED 14:20 → MS2 16:15
PROVIDERS: Admitting Provider Family Medicine; Emergency Provider Emergency Medicine; Family Provider Internal Medicine; PCP Internal Medicine; Visit Provider Internal Medicine
DX: J18.9 Pneumonia, unspecified organism (principal); J96.01 Acute respiratory failure with hypoxia; J20.8 Acute bronchitis due to other specified organisms; B97.81 Human metapneumovirus as the cause of diseases classified elsewhere; E78.5 Hyperlipidemia, unspecified; E87.6 Hypokalemia; I10 Essential (primary) hypertension; Z85.46 Personal history of malignant neoplasm of prostate; Z92.3 Personal history of irradiation; Z79.899 Other long term (current) drug therapy; Z87.891 Personal history of nicotine dependence; Z87.442 Personal history of urinary calculi
CPT/HCPCS: 36415; 36600; 71046; 80048; 82803; 83605; 83880; 84484; 85025; 87040; 87449; 87633; 87804; 93005; 94640; 94760; 97802; 99282; J7030; J7040; A4216

== ENCOUNTER → 2019-07-13 09:30 | Outpatient (CLI) | payer MEDICARE, OTHER, SELFPAY ==
[2018-10-26 18:10] VITALS: BMI 25.0
--- NOTE | 2019-07-13 09:35 | RAD_ITS ---
STUDY: X-RAY - PELVIS REASON FOR EXAM: Male, 74 years old. Inflammatory polyarthropathy. TECHNIQUE: One view of the pelvis was obtained. COMPARISON: None. FINDINGS: There is a non-specific bowel gas pattern. Normal visualized soft tissue structures. There is diffuse demineralization of the osseous structures. Vascular calcifications consistent with peripheral arterial disease. There is narrowing with cortical sclerosis and osteophyte formation of the sacroiliac joint consistent with degenerative osteoarthritic changes. Normal visualized bilateral superior and inferior pubic rami. There are degenerative changes of the pubic symphysis with articular narrowing and sclerosis. Normal ischial tuberosities. There are postoperative changes with fixation plate and screw through the femoral neck a lower. Alignment is normal. There is mild narrowing of the hip joint is with minimal acetabular spur. Normal visualized left femoral head. Normal left acetabulum. There is mild to moderate articular joint space narrowing of the left hip. RAD/Pelvis 1 or 2 Views IMPRESSION: Postoperative changes of the right proximal femur. Mild degenerative disease of bilateral hips along with osteopenia. No acute fracture seen. Electronically Signed: María Vale MD at 0:05 EST , Service support ,
[2019-07-13 12:39] LABS: CRP < 2.90 mg/L (0.0-3.0); Rheumatoid Factor < 10.0 IU/mL (<15)
[2019-07-13 12:46] LABS: Absolute Lymphocyte Count 1.56 X10^3/uL (0.83-4.51); Absolute Neutrophil Count 4.9 X10^3/uL (2.0-7.7); Basophil# 0.06 X10^3/uL; Basophil% 0.8 % (0-1); Eosinophil# 0.09 X10^3/uL; Eosinophils% 1.3 % (0-5); Hematocrit 42.2 % (40-54); Hemoglobin 13.5 g/dL (13.0-16.5); Lymphocyte # 1.56 X10^3/ul (4.0); Lymphocyte % 21.7 % (19-41); Mean Corpuscular Hgb 29.5 pg (27.0-32.0); Mean Corpuscular Volume 92.3 fL (80-94); Mean Platelet Vol. 10.7 fl (6.2-12.0); Monocyte% 8.4 % (0-10); NRBC Flagged by Analyzer 0 % (0-5); Neutrophil # 4.85 X10^3/uL (2.7-7.7); Neutrophil % 67.5 % (47-70); Platelet Count 247 K/mm3 (150-450); RBC Distribution Width CV 12.2 % (11.6-14.6); Red Blood Count 4.57 M/mm3 (4.6-6.2); White Blood Count 7.2 K/mm3 (4.4-11.0)
[2019-07-13 13:08] LABS: Erythrocyte Sedimentation Rate 27 mm/hr (0-20)
[2019-07-13 13:26] LABS: Hepatitis B Surface Antibody Non-Reactive; Hepatitis B Surface Antigen Non-Reactive (Nonreactive); Hepatitis C Antibody Non-Reactive (Nonreactive)
[2019-07-13 17:01] LABS: AST(SGOT) 22 U/L (15-37); Alanine Aminotransfer ALT/SGPT 23 U/L (16-61); Albumin, Serum 3.8 g/dL (3.2-5.0); Alkaline Phosphatase 115 U/L (45-117); Anion Gap 8 (5-15); BUN 14 mg/dL (7-18); BUN/Creat Ratio 16.8 RATIO (10-20); Chloride 107 mmol/L (98-107); Creatinine, Serum 0.83 mg/dL (0.70-1.30); EST Glomerular Filtration Rate 96 mL/min (>60); Est Glom Filt Rate - Afr Amer 117 mL/min (>60); Globulin 3.7 g/dL (2.2-4.2); Glucose 83 mg/dL (74-106); Potassium 3.7 mmol/L (3.5-5.1); Protein, Total 7.5 g/dL (6.4-8.2); Sodium Level 141 mmol/L (136-145)
[2019-07-16 16:59] LABS: ANTINUCLEAR ANTIBODIES DIRECT Negative (Negative)
[2019-07-19 18:48] LABS: CCP IgG Antibodies 7 units (0-19); HLA B27 Negative (.); Hepatitis B Core AB IgM Negative (Negative)
== END ==
PROVIDERS: Family Provider Internal Medicine; PCP Internal Medicine; Referring Provider Internal Medicine Rheumatology; Visit Provider Internal Medicine Rheumatology
DX: M06.4 Inflammatory polyarthropathy (principal); M19.041 Primary osteoarthritis, right hand; I10 Essential (primary) hypertension
CPT/HCPCS: 36415; 72170; 80053; 81374; 85025; 85652; 86038; 86140; 86200; 86431; 86705; 86706; 86803; 87340

== ENCOUNTER → 2019-09-11 12:20 | Outpatient (CLI) | payer MEDICARE, OTHER, SELFPAY ==
[2018-10-26 18:10] VITALS: BMI 25.0
[2019-09-11 14:08] LABS: Absolute Lymphocyte Count 1.48 X10^3/uL (0.83-4.51); Absolute Neutrophil Count 5.8 X10^3/uL (2.0-7.7); Basophil# 0.06 X10^3/uL; Basophil% 0.8 % (0-1); Eosinophils% 1.3 % (0-5); Hematocrit 40.8 % (40-54); Hemoglobin 13.1 g/dL (13.0-16.5); Lymphocyte # 1.48 X10^3/ul (4.0); Lymphocyte % 18.7 % (19-41); Mean Corp Hgb Conc 32.1 g/dL (32-36); Mean Corpuscular Hgb 29.3 pg (27.0-32.0); Mean Corpuscular Volume 91.3 fL (80-94); Mean Platelet Vol. 10.4 fl (6.2-12.0); Monocyte# 0.48 X10^3/uL; Monocyte% 6.1 % (0-10); NRBC Flagged by Analyzer 0 % (0-5); Neutrophil # 5.76 X10^3/uL (2.7-7.7); Neutrophil % 72.8 % (47-70); Platelet Count 262 K/mm3 (150-450); RBC Distribution Width CV 13.2 % (11.6-14.6); RBC Distribution Width SD 43.8 fl (35.1-43.9); Red Blood Count 4.47 M/mm3 (4.6-6.2); White Blood Count 7.9 K/mm3 (4.4-11.0)
[2019-09-11 14:29] LABS: BUN 15 mg/dL (7-18); Creatinine, Serum 0.82 mg/dL (0.70-1.30); Glucose 89 mg/dL (74-106)
[2019-09-11 14:30] LABS: ALB/GLOB Ratio 0.9 RATIO (0.9-2.4); AST(SGOT) 18 U/L (15-37); Alanine Aminotransfer ALT/SGPT 30 U/L (16-61); Albumin, Serum 3.5 g/dL (3.2-5.0); Alkaline Phosphatase 109 U/L (45-117); Anion Gap 5 (5-15); BUN/Creat Ratio 18.4 RATIO (10-20); Calcium,Total 8.9 mg/dL (8.5-10.1); Chloride 108 mmol/L (98-107); EST Glomerular Filtration Rate 98 mL/min (>60); Est Glom Filt Rate - Afr Amer 119 mL/min (>60); Globulin 3.7 g/dL (2.2-4.2); Potassium 3.5 mmol/L (3.5-5.1); Protein, Total 7.2 g/dL (6.4-8.2); Sodium Level 141 mmol/L (136-145)
== END ==
PROVIDERS: Family Provider Internal Medicine; PCP Internal Medicine; Referring Provider Internal Medicine Rheumatology; Visit Provider Internal Medicine Rheumatology
DX: M06.4 Inflammatory polyarthropathy (principal); M19.041 Primary osteoarthritis, right hand; I10 Essential (primary) hypertension; E78.5 Hyperlipidemia, unspecified; J44.9 Chronic obstructive pulmonary disease, unspecified; Z85.46 Personal history of malignant neoplasm of prostate
CPT/HCPCS: 36415; 80053; 85025

== ENCOUNTER → 2019-11-05 09:35 | Outpatient (CLI) | payer MEDICARE, OTHER, SELFPAY ==
[2018-10-26 18:10] VITALS: BMI 25.0
[2019-11-05 12:41] LABS: Absolute Lymphocyte Count 1.07 X10^3/uL (0.83-4.51); Absolute Neutrophil Count 4.4 X10^3/uL (2.0-7.7); Basophil# 0.03 X10^3/uL; Basophil% 0.5 % (0-1); Eosinophil# 0.16 X10^3/uL; Eosinophils% 2.6 % (0-5); Hematocrit 39.4 % (40-54); Hemoglobin 12.5 g/dL (13.0-16.5); Lymphocyte # 1.07 X10^3/ul (4.0); Lymphocyte % 17.2 % (19-41); Mean Corp Hgb Conc 31.7 g/dL (32-36); Mean Corpuscular Hgb 30.2 pg (27.0-32.0); Mean Corpuscular Volume 95.2 fL (80-94); Mean Platelet Vol. 10.1 fl (6.2-12.0); Monocyte# 0.59 X10^3/uL; Monocyte% 9.5 % (0-10); NRBC Flagged by Analyzer 0 % (0-5); Neutrophil # 4.35 X10^3/uL (2.7-7.7); Neutrophil % 69.9 % (47-70); Platelet Count 255 K/mm3 (150-450); RBC Distribution Width CV 14.3 % (11.6-14.6); RBC Distribution Width SD 49.4 fl (35.1-43.9); Red Blood Count 4.14 M/mm3 (4.6-6.2); White Blood Count 6.2 K/mm3 (4.4-11.0)
[2019-11-05 12:58] LABS: ALB/GLOB Ratio 0.9 RATIO (0.9-2.4); AST(SGOT) 23 U/L (15-37); Alanine Aminotransfer ALT/SGPT 30 U/L (16-61); Albumin, Serum 3.5 g/dL (3.2-5.0); Alkaline Phosphatase 129 U/L (45-117); Anion Gap 7 (5-15); BUN 17 mg/dL (7-18); BUN/Creat Ratio 22.9 RATIO (10-20); Calcium,Total 8.5 mg/dL (8.5-10.1); Chloride 107 mmol/L (98-107); Creatinine, Serum 0.74 mg/dL (0.70-1.30); EST Glomerular Filtration Rate 110 mL/min (>60); Est Glom Filt Rate - Afr Amer 133 mL/min (>60); Globulin 3.7 g/dL (2.2-4.2); Glucose 86 mg/dL (74-106); Protein, Total 7.2 g/dL (6.4-8.2); Sodium Level 141 mmol/L (136-145)
== END ==
PROVIDERS: PCP Internal Medicine; Referring Provider Internal Medicine Rheumatology; Visit Provider Internal Medicine Rheumatology
DX: M06.4 Inflammatory polyarthropathy (principal); Z79.899 Other long term (current) drug therapy; M19.041 Primary osteoarthritis, right hand; I10 Essential (primary) hypertension; E78.5 Hyperlipidemia, unspecified; J44.9 Chronic obstructive pulmonary disease, unspecified; Z85.46 Personal history of malignant neoplasm of prostate
CPT/HCPCS: 36415; 80053; 85025

== ENCOUNTER → 2020-01-22 10:01 | Outpatient (CLI) | payer MEDICARE, OTHER, SELFPAY ==
[2018-10-26 18:10] VITALS: BMI 25.0
[2020-01-22 12:50] LABS: Absolute Lymphocyte Count 1.32 X10^3/uL (0.83-4.51); Absolute Neutrophil Count 3.3 X10^3/uL (2.0-7.7); Basophil# 0.05 X10^3/uL; Basophil% 0.9 % (0-1); Eosinophil# 0.19 X10^3/uL; Eosinophils% 3.6 % (0-5); Hematocrit 40.8 % (40-54); Hemoglobin 12.8 g/dL (13.0-16.5); Lymphocyte # 1.32 X10^3/ul (4.0); Mean Corp Hgb Conc 31.4 g/dL (32-36); Mean Corpuscular Hgb 29.8 pg (27.0-32.0); Mean Corpuscular Volume 94.9 fL (80-94); Mean Platelet Vol. 10.4 fl (6.2-12.0); Monocyte% 7.6 % (0-10); NRBC Flagged by Analyzer 0 % (0-5); Neutrophil # 3.29 X10^3/uL (2.7-7.7); Neutrophil % 62.5 % (47-70); Platelet Count 260 K/mm3 (150-450); RBC Distribution Width CV 12.2 % (11.6-14.6); RBC Distribution Width SD 42.5 fl (35.1-43.9); White Blood Count 5.3 K/mm3 (4.4-11.0)
[2020-01-22 12:57] LABS: ALB/GLOB Ratio 0.9 RATIO (0.9-2.4); AST(SGOT) 17 U/L (15-37); Alanine Aminotransfer ALT/SGPT 20 U/L (16-61); Albumin, Serum 3.5 g/dL (3.2-5.0); Alkaline Phosphatase 132 U/L (45-117); Anion Gap 4 (5-15); BUN 18 mg/dL (7-18); BUN/Creat Ratio 21.6 RATIO (10-20); Calcium,Total 8.9 mg/dL (8.5-10.1); Chloride 110 mmol/L (98-107); Creatinine, Serum 0.83 mg/dL (0.70-1.30); EST Glomerular Filtration Rate 96 mL/min (>60); Est Glom Filt Rate - Afr Amer 116 mL/min (>60); Globulin 3.7 g/dL (2.2-4.2); Glucose 92 mg/dL (74-106); Potassium 4.3 mmol/L (3.5-5.1); Protein, Total 7.2 g/dL (6.4-8.2); Sodium Level 142 mmol/L (136-145)
== END ==
PROVIDERS: PCP Internal Medicine; Referring Provider Internal Medicine Rheumatology; Visit Provider Internal Medicine Rheumatology
DX: M06.4 Inflammatory polyarthropathy (principal); Z79.899 Other long term (current) drug therapy; M19.041 Primary osteoarthritis, right hand; I10 Essential (primary) hypertension; E78.5 Hyperlipidemia, unspecified; J44.9 Chronic obstructive pulmonary disease, unspecified; Z85.46 Personal history of malignant neoplasm of prostate; M81.0 Age-related osteoporosis without current pathological fracture
CPT/HCPCS: 36415; 80053; 85025

== ENCOUNTER → 2020-04-22 08:44 | Outpatient (CLI) | payer MEDICARE, OTHER, SELFPAY ==
[2018-10-26 18:10] VITALS: BMI 25.0
[2020-04-22 10:10] LABS: Absolute Lymphocyte Count 1.32 X10^3/uL (0.83-4.51); Absolute Neutrophil Count 3.4 X10^3/uL (2.0-7.7); Basophil# 0.07 X10^3/uL; Basophil% 1.3 % (0-1); Eosinophil# 0.19 X10^3/uL; Eosinophils% 3.6 % (0-5); Hemoglobin 12.4 g/dL (13.0-16.5); Lymphocyte # 1.32 X10^3/ul (4.0); Lymphocyte % 24.7 % (19-41); Mean Corp Hgb Conc 31.8 g/dL (32-36); Mean Corpuscular Hgb 29.7 pg (27.0-32.0); Mean Corpuscular Volume 93.5 fL (80-94); Mean Platelet Vol. 9.8 fl (6.2-12.0); Monocyte% 7.5 % (0-10); NRBC Flagged by Analyzer 0 % (0-5); Neutrophil # 3.35 X10^3/uL (2.7-7.7); Neutrophil % 62.7 % (47-70); Platelet Count 266 K/mm3 (150-450); RBC Distribution Width CV 14.3 % (11.6-14.6); RBC Distribution Width SD 49.3 fl (35.1-43.9); Red Blood Count 4.17 M/mm3 (4.6-6.2); White Blood Count 5.3 K/mm3 (4.4-11.0)
[2020-04-22 10:53] LABS: AST(SGOT) 22 U/L (15-37); Alanine Aminotransfer ALT/SGPT 30 U/L (16-61); Albumin, Serum 3.6 g/dL (3.2-5.0); Alkaline Phosphatase 117 U/L (45-117); Anion Gap 3 (5-15); BUN 18 mg/dL (7-18); BUN/Creat Ratio 20.4 RATIO (10-20); Calcium,Total 8.4 mg/dL (8.5-10.1); Chloride 107 mmol/L (98-107); Creatinine, Serum 0.88 mg/dL (0.70-1.30); EST Glomerular Filtration Rate 90 mL/min (>60); Est Glom Filt Rate - Afr Amer 109 mL/min (>60); Globulin 3.6 g/dL (2.2-4.2); Glucose 82 mg/dL (74-106); Potassium 3.8 mmol/L (3.5-5.1); Protein, Total 7.2 g/dL (6.4-8.2); Sodium Level 139 mmol/L (136-145)
== END ==
PROVIDERS: PCP Internal Medicine; Referring Provider Internal Medicine Rheumatology; Visit Provider Internal Medicine Rheumatology
DX: M06.4 Inflammatory polyarthropathy (principal); Z79.899 Other long term (current) drug therapy; M19.041 Primary osteoarthritis, right hand; I10 Essential (primary) hypertension; E78.5 Hyperlipidemia, unspecified; J44.9 Chronic obstructive pulmonary disease, unspecified; Z85.46 Personal history of malignant neoplasm of prostate; M81.0 Age-related osteoporosis without current pathological fracture
CPT/HCPCS: 36415; 80053; 85025

== ENCOUNTER → 2020-07-14 09:23 | Outpatient (CLI) | payer MEDICARE, OTHER, SELFPAY ==
[2018-10-26 18:10] VITALS: BMI 25.0
[2020-07-14 10:18] LABS: Absolute Lymphocyte Count 0.98 X10^3/uL (0.83-4.51); Absolute Neutrophil Count 5.3 X10^3/uL (2.0-7.7); Basophil# 0.04 X10^3/uL; Basophil% 0.6 % (0-1); Eosinophil# 0.21 X10^3/uL; Eosinophils% 2.9 % (0-5); Hematocrit 40.7 % (40-54); Hemoglobin 12.8 g/dL (13.0-16.5); Lymphocyte # 0.98 X10^3/ul (4.0); Lymphocyte % 13.8 % (19-41); Mean Corp Hgb Conc 31.4 g/dL (32-36); Mean Corpuscular Hgb 29.6 pg (27.0-32.0); Mean Corpuscular Volume 94.2 fL (80-94); Mean Platelet Vol. 9.8 fl (6.2-12.0); Monocyte# 0.57 X10^3/uL; NRBC Flagged by Analyzer 0 % (0-5); Neutrophil % 74.4 % (47-70); Platelet Count 245 K/mm3 (150-450); RBC Distribution Width CV 13.2 % (11.6-14.6); RBC Distribution Width SD 45.1 fl (35.1-43.9); Red Blood Count 4.32 M/mm3 (4.6-6.2); White Blood Count 7.1 K/mm3 (4.4-11.0)
[2020-07-14 10:42] LABS: ALB/GLOB Ratio 0.9 RATIO (0.9-2.4); AST(SGOT) 20 U/L (15-37); Alanine Aminotransfer ALT/SGPT 27 U/L (16-61); Albumin, Serum 3.5 g/dL (3.2-5.0); Alkaline Phosphatase 147 U/L (45-117); Anion Gap 6 (5-15); BUN 16 mg/dL (7-18); BUN/Creat Ratio 19.8 RATIO (10-20); Calcium,Total 8.7 mg/dL (8.5-10.1); Chloride 105 mmol/L (98-107); Creatinine, Serum 0.81 mg/dL (0.70-1.30); EST Glomerular Filtration Rate 100 mL/min (>60); Est Glom Filt Rate - Afr Amer 121 mL/min (>60); Globulin 3.7 g/dL (2.2-4.2); Glucose 94 mg/dL (74-106); Potassium 3.8 mmol/L (3.5-5.1); Protein, Total 7.2 g/dL (6.4-8.2); Sodium Level 141 mmol/L (136-145)
== END ==
PROVIDERS: PCP Internal Medicine; Referring Provider Internal Medicine Rheumatology; Visit Provider Internal Medicine Rheumatology
DX: M06.4 Inflammatory polyarthropathy (principal); Z79.899 Other long term (current) drug therapy; M19.041 Primary osteoarthritis, right hand; I10 Essential (primary) hypertension; E78.5 Hyperlipidemia, unspecified; J44.9 Chronic obstructive pulmonary disease, unspecified; Z85.46 Personal history of malignant neoplasm of prostate; M81.0 Age-related osteoporosis without current pathological fracture
CPT/HCPCS: 36415; 80053; 85025

== ENCOUNTER 2020-09-27 21:28 | Emergency (ER) | payer MEDICARE, OTHER, SELFPAY ==
[2018-10-26 18:10] VITALS: BMI 25.0
[2020-09-27 21:30] VITALS: BP 114/67; PULSE 108; RESP 16; TEMP 36.8; O2SAT 93; BMI 22.1
[2020-09-27 21:40] VITALS: BP 114/67; PULSE 108; RESP 16; TEMP 36.8; O2SAT 93; O2SAT 94
--- NOTE | 2020-09-27 21:44 | ED.RN ---
symptoms started 09/11/20, tested positive for covid on 09/13/20.
[2020-09-27 21:49] VITALS: RESP 22; O2SAT 89; O2SAT 93
--- NOTE | 2020-09-27 21:57 | EKG12_ITS ---
Test Reason : SOB Blood Pressure : / mmHG Vent. Rate : 087 BPM Atrial Rate : 087 BPM P-R Int : 136 ms QRS Dur : 074 ms QT Int : 342 ms P-R-T Axes : 062 056 064 degrees QTc Int : 411 ms Normal sinus rhythm Nonspecific ST and T wave abnormality Abnormal ECG Confirmed by RANJITH REYEZ, GEORGIANA ([id number]), social media editor SHEILA CROWLEY ([id number]) on 09/30/2020 10:31:23 AM Referred By: JOHAN Confirmed By:GEORGIANA KASPER MD
[2020-09-27 22:14] LABS: Absolute Lymphocyte Count 0.59 X10^3/uL (0.83-4.51); Basophil# 0.01 X10^3/uL; Basophil% 0.2 % (0-1); Eosinophil# 0.01 X10^3/uL; Eosinophils% 0.2 % (0-5); Hematocrit 40.4 % (40-54); Hemoglobin 13.4 g/dL (13.0-16.5); Lymphocyte # 0.59 X10^3/ul (4.0); Lymphocyte % 9.8 % (19-41); Mean Corp Hgb Conc 33.2 g/dL (32-36); Mean Corpuscular Hgb 29.8 pg (27.0-32.0); Mean Corpuscular Volume 89.8 fL (80-94); Mean Platelet Vol. 10.7 fl (6.2-12.0); Monocyte# 0.45 X10^3/uL; Monocyte% 7.5 % (0-10); NRBC Flagged by Analyzer 0 % (0-5); Neutrophil # 4.96 X10^3/uL (2.7-7.7); POSITIVE DIFFERENTIAL YES; Platelet Count 162 K/mm3 (150-450); RBC Distribution Width CV 13.9 % (11.6-14.6); RBC Distribution Width SD 45.7 fl (35.1-43.9)
--- NOTE | 2020-09-27 22:17 | RAD_ITS ---
STUDY: X-RAY CHEST REASON FOR EXAM: Male, 75 years old. HYPOXIA TECHNIQUE: Single AP portable view of the chest. COMPARISON: 2018 FINDINGS: Chronic right lower lobe fibrotic changes. No new opacity is seen in either lung. Chronic right hemidiaphragm elevation. There is no demonstrated pleural abnormality. Normal size heart. Normal mediastinum and alfredo. Normal visualized pulmonary arteries. Normal visualized aortic arch and descending thoracic aorta. There are diffuse degenerative changes of the visualized thoracic spine. There is degenerative osteoarthritis of the bilateral shoulders. There is no demonstrated abnormality of the visualized soft tissue structures of the upper abdomen. RAD/Chest 1 View (Portable) IMPRESSION: No visualized acute process Electronically Signed: Aime Daily MD at 22:43 EST , Service support ,
[2020-09-27] MEDS: dexAMETHasone 10 MG/ML Vial 6 MG IV (22:21)
[2020-09-27 22:29] VITALS: BP 95/64; PULSE 86; RESP 23; O2SAT 95
[2020-09-27 22:46] LABS: Differential Indicated SCAN CRITERIA MET
[2020-09-27 23:00] VITALS: BP 95/64; PULSE 84; RESP 21; O2SAT 94
[2020-09-27 23:01] LABS: Anion Gap 6 (5-15); BUN 19 mg/dL (7-18); BUN/Creat Ratio 19.8 RATIO (10-20); Calcium,Total 8.6 mg/dL (8.5-10.1); Chloride 107 mmol/L (98-107); Creatinine, Serum 0.96 mg/dL (0.70-1.30); EST Glomerular Filtration Rate 81 mL/min (>60); Est Glom Filt Rate - Afr Amer 98 mL/min (>60); Estimated Creatinine Clearance 60.39 ml/min; Glucose 108 mg/dL (74-106); Potassium 3.6 mmol/L (3.5-5.1); Sodium Level 140 mmol/L (136-145)
[2020-09-27 23:02] LABS: D-Dimer Quantitative (DVT/PE) 0.63 FEU/ug/m (0.27-0.49)
[2020-09-27 23:13] LABS: Differential Comment SCANNED
--- NOTE | 2020-09-28 | ED.DCSUM_ITS ---
- ER Visit Summary Date of Service: 09/28/20 Chief Complaint: Hypoxia History of Present Illness: The patient is a [address] Verma. He will reports that he had a Covid test on September 13 through the [facility] department that was positive. States that he has a pulse ox home and that his oxygen levels been low over the past week. However, tonight it was 81% on room air so he came to the emergency department for evaluation. Patient reports that his shortness of breath seems to be worsened by laying flat. Is relieved by walking. He denies any fever, chills, chest pain, or cough. Does report that he has fatigue. Physical Examination: Vitals: 98.2, 114/67, 82, 16, 89% on room air which is hypoxic at rest General: Well-nourished and well-developed. Head: Normocephalic atraumatic. Neck: Supple, no lymphadenopathy. No JVD. Nontender. Cardiovascular: Regular rate and rhythm. 2 out of 6 systolic murmur. Respiratory: No respiratory distress. Crackles at the right base. Abdominal: Soft, nontender, nondistended, normal bowel sounds. No guarding, rebound, or peritoneal signs. Back: Nontender. Extremities: Nontender, 1+ edema lower extremities bilaterally. Skin: Normal color, no rash. Neurologic: Alert and oriented ?3. Cranial nerves II through XII are intact. Normal strength and sensation. Psych: Normal affect. Test Results: EKG is sinus at [address] changes. Is unchanged from 2019. Troponin is negative. BNP is 22. D-dimer is 0.63 which is negative when corrected for his age of 75. Chem-7 shows a BUN of 19 and glucose 108. CBC shows stable neutrophils 82 lymphocytes of 10. Clinical Impression(s) from Imaging Studies Chest X-Ray 09/27/20 22:17 IMPRESSION: No visualized acute process Electronically Signed: Aime Daily MD at 22:43 EST , Service support , Emergency Department Course and Treatment: Patient's ambulatory pulse ox is 83% on room air. On 2 L ambulatory pulse ox is 93%. He is 89% at rest. He feels well and would like to go home. Treatment Plan: Patient will be arranged for home O2. He will placed on a week of dexamethasone. He was given a first dose in the emergency department. Follow-up with his primary care physician in 1 week if not improving. Return to the emergency department if he requires more than 4 L of O2 or for any other concerns. Disposition: To home in improved and stable condition. Impression: 1. COVID-19 infection. 2. Hypoxia. This note was generated with [employer] dictation software. It may contain incorrect words, spelling, and punctuation that were not noted in review of the chart prior to signing ED Disposition - Plan for ED Patient: Instructions: Coronavirus Disease 2019 (COVID-19): Overview Prescriptions: Dexamethasone 6 mg PO DAILY #7 tablet Oxygen, Home [Home Oxygen] 2 lpm NASAL CONT #1 unit Referrals: Deni Verma MD [Primary Care Provider] - 1 Week if not improving
[2020-09-28 00:12] VITALS: BP 99/66; PULSE 78; RESP 21; O2SAT 94
== END 2020-09-28 00:12 | disposition home or self-care (01) ==
PROVIDERS: Emergency Provider Emergency Medicine; PCP Internal Medicine
DX: U07.1 COVID-19 (principal); R09.02 Hypoxemia; I10 Essential (primary) hypertension; J44.9 Chronic obstructive pulmonary disease, unspecified; E78.00 Pure hypercholesterolemia, unspecified; M06.9 Rheumatoid arthritis, unspecified; Z85.46 Personal history of malignant neoplasm of prostate; Z79.899 Other long term (current) drug therapy; R06.02 Shortness of breath
CPT/HCPCS: 71045; 80048; 83880; 84484; 85025; 85379; 93005; 96374; 99284; A4216

== ENCOUNTER → 2020-11-03 12:11 | Outpatient (CLI) | payer MEDICARE, OTHER, SELFPAY ==
[2020-11-03 15:25] LABS: Absolute Lymphocyte Count 0.78 X10^3/uL (0.83-4.51); Absolute Neutrophil Count 4.7 X10^3/uL (2.0-7.7); Basophil# 0.08 X10^3/uL; Basophil% 1.3 % (0-1); Eosinophils% 1.6 % (0-5); Hematocrit 35.6 % (40-54); Lymphocyte # 0.78 X10^3/ul (4.0); Lymphocyte % 12.7 % (19-41); Mean Corp Hgb Conc 30.9 g/dL (32-36); Mean Corpuscular Hgb 28.7 pg (27.0-32.0); Mean Platelet Vol. 10.9 fl (6.2-12.0); Monocyte# 0.44 X10^3/uL; Monocyte% 7.2 % (0-10); NRBC Flagged by Analyzer 0 % (0-5); Neutrophil # 4.71 X10^3/uL (2.7-7.7); Neutrophil % 76.9 % (47-70); Platelet Count 283 K/mm3 (150-450); RBC Distribution Width SD 51.2 fl (35.1-43.9); Red Blood Count 3.83 M/mm3 (4.6-6.2); White Blood Count 6.1 K/mm3 (4.4-11.0)
[2020-11-03 15:52] LABS: ALB/GLOB Ratio 0.8 RATIO (0.9-2.4); AST(SGOT) 18 U/L (15-37); Alanine Aminotransfer ALT/SGPT 23 U/L (16-61); Alkaline Phosphatase 165 U/L (45-117); Anion Gap 7 (5-15); BUN 17 mg/dL (7-18); BUN/Creat Ratio 16.7 RATIO (10-20); Calcium,Total 8.6 mg/dL (8.5-10.1); Chloride 105 mmol/L (98-107); Creatinine, Serum 1.02 mg/dL (0.70-1.30); EST Glomerular Filtration Rate 76 mL/min (>60); Est Glom Filt Rate - Afr Amer 92 mL/min (>60); Globulin 3.9 g/dL (2.2-4.2); Glucose 83 mg/dL (74-106); Potassium 3.6 mmol/L (3.5-5.1); Protein, Total 6.9 g/dL (6.4-8.2); Sodium Level 140 mmol/L (136-145)
== END ==
PROVIDERS: PCP Internal Medicine; Referring Provider Internal Medicine Rheumatology; Visit Provider Internal Medicine Rheumatology
DX: M06.4 Inflammatory polyarthropathy (principal); Z79.899 Other long term (current) drug therapy; M19.041 Primary osteoarthritis, right hand; I10 Essential (primary) hypertension; E78.5 Hyperlipidemia, unspecified; J44.9 Chronic obstructive pulmonary disease, unspecified; Z85.46 Personal history of malignant neoplasm of prostate; M81.0 Age-related osteoporosis without current pathological fracture
CPT/HCPCS: 36415; 80053; 85025

== ENCOUNTER → 2020-12-31 13:04 | Outpatient (CLI) | payer MEDICARE, OTHER, SELFPAY ==
[2020-12-31 15:15] LABS: Absolute Lymphocyte Count 1.18 X10^3/uL (0.83-4.51); Absolute Neutrophil Count 4.1 X10^3/uL (2.0-7.7); Basophil# 0.07 X10^3/uL; Basophil% 1.2 % (0-1); Eosinophil# 0.12 X10^3/uL; Hematocrit 38.9 % (40-54); Lymphocyte # 1.18 X10^3/ul (0.83-4.51); Lymphocyte % 19.8 % (19-41); Mean Corp Hgb Conc 30.8 g/dL (32-36); Mean Corpuscular Hgb 29.3 pg (27.0-32.0); Mean Corpuscular Volume 94.9 fL (80-94); Mean Platelet Vol. 10.4 fl (6.2-12.0); Monocyte# 0.45 X10^3/uL; Monocyte% 7.6 % (0-10); NRBC Flagged by Analyzer 0 % (0-5); Neutrophil # 4.12 X10^3/uL (2.7-7.7); Neutrophil % 69.2 % (47-70); Platelet Count 235 K/mm3 (150-450); RBC Distribution Width CV 13.6 % (11.6-14.6); RBC Distribution Width SD 47.1 fl (35.1-43.9)
[2020-12-31 15:33] LABS: ALB/GLOB Ratio 1.1 RATIO (0.9-2.4); AST(SGOT) 21 U/L (15-37); Alanine Aminotransfer ALT/SGPT 21 U/L (16-61); Albumin, Serum 3.6 g/dL (3.2-5.0); Alkaline Phosphatase 125 U/L (45-117); Anion Gap 5 (5-15); BUN 15 mg/dL (7-18); BUN/Creat Ratio 15.3 RATIO (10-20); Calcium,Total 8.8 mg/dL (8.5-10.1); Chloride 106 mmol/L (98-107); Creatinine, Serum 0.98 mg/dL (0.70-1.30); EST Glomerular Filtration Rate 80 mL/min (>60); Est Glom Filt Rate - Afr Amer 96 mL/min (>60); Globulin 3.4 g/dL (2.2-4.2); Glucose 84 mg/dL (74-106); Potassium 3.8 mmol/L (3.5-5.1); Sodium Level 140 mmol/L (136-145)
== END ==
PROVIDERS: PCP Internal Medicine; Referring Provider Internal Medicine Rheumatology; Visit Provider Internal Medicine Rheumatology
DX: M06.4 Inflammatory polyarthropathy (principal); Z79.899 Other long term (current) drug therapy; M19.041 Primary osteoarthritis, right hand; I10 Essential (primary) hypertension; E78.5 Hyperlipidemia, unspecified; J44.9 Chronic obstructive pulmonary disease, unspecified; Z85.46 Personal history of malignant neoplasm of prostate; M81.0 Age-related osteoporosis without current pathological fracture
CPT/HCPCS: 36415; 80053; 85025

== ENCOUNTER → 2021-04-20 10:13 | Outpatient (CLI) | payer MEDICARE, OTHER, SELFPAY ==
[2021-04-20 12:03] LABS: Absolute Lymphocyte Count 0.48 X10^3/uL (0.83-4.51); Absolute Neutrophil Count 9.7 X10^3/uL (2.0-7.7); Basophil# 0.02 X10^3/uL; Basophil% 0.2 % (0-1); Eosinophil# 0.02 X10^3/uL; Eosinophils% 0.2 % (0-5); Hemoglobin 12.6 g/dL (13.0-16.5); Lymphocyte # 0.48 X10^3/ul (0.83-4.51); Lymphocyte % 4.6 % (19-41); Mean Corp Hgb Conc 31.5 g/dL (32-36); Mean Corpuscular Hgb 29.8 pg (27.0-32.0); Mean Corpuscular Volume 94.6 fL (80-94); Mean Platelet Vol. 10.1 fl (6.2-12.0); Monocyte# 0.22 X10^3/uL; Monocyte% 2.1 % (0-10); NRBC Flagged by Analyzer 0 % (0-5); Neutrophil # 9.68 X10^3/uL (2.7-7.7); Neutrophil % 92.3 % (47-70); POSITIVE DIFFERENTIAL YES; Platelet Count 255 K/mm3 (150-450); RBC Distribution Width CV 15.3 % (11.6-14.6); RBC Distribution Width SD 53.1 fl (35.1-43.9); Red Blood Count 4.23 M/mm3 (4.6-6.2); White Blood Count 10.5 K/mm3 (4.4-11.0)
[2021-04-20 12:05] LABS: Differential Indicated SCAN CRITERIA MET
[2021-04-20 12:21] LABS: ALB/GLOB Ratio 1.1 RATIO (0.9-2.4); AST(SGOT) 20 U/L (15-37); Alanine Aminotransfer ALT/SGPT 32 U/L (16-61); Albumin, Serum 3.7 g/dL (3.2-5.0); Alkaline Phosphatase 116 U/L (45-117); Anion Gap 5 (5-15); BUN 13 mg/dL (7-18); BUN/Creat Ratio 16.5 RATIO (10-20); Calcium,Total 9.2 mg/dL (8.5-10.1); Chloride 103 mmol/L (98-107); Creatinine, Serum 0.79 mg/dL (0.70-1.30); EST Glomerular Filtration Rate 102 mL/min (>60); Est Glom Filt Rate - Afr Amer 124 mL/min (>60); Globulin 3.5 g/dL (2.2-4.2); Glucose 104 mg/dL (74-106); Potassium 3.6 mmol/L (3.5-5.1); Protein, Total 7.2 g/dL (6.4-8.2); Sodium Level 140 mmol/L (136-145)
== END ==
PROVIDERS: PCP Internal Medicine; Referring Provider Internal Medicine Rheumatology; Visit Provider Internal Medicine Rheumatology
DX: M06.4 Inflammatory polyarthropathy (principal); Z79.899 Other long term (current) drug therapy; M19.041 Primary osteoarthritis, right hand; I10 Essential (primary) hypertension; E78.5 Hyperlipidemia, unspecified; J44.9 Chronic obstructive pulmonary disease, unspecified; Z85.46 Personal history of malignant neoplasm of prostate; M81.0 Age-related osteoporosis without current pathological fracture
CPT/HCPCS: 36415; 80053; 85025

== ENCOUNTER → 2021-05-04 13:02 | Outpatient (CLI) | payer MEDICARE, OTHER, SELFPAY ==
--- NOTE | 2021-05-04 13:20 | CT_ITS ---
STUDY: CT MAXILLOFACIAL SINUSES REASON FOR EXAM: Male, 76 years old. SINUSITIS RADIATION DOSAGE (If Supplied By Facility): CTDIvol = ( 33.06 ) mGy, DLP = ( 800.79 ) mGycm TECHNIQUE: The patient was scanned in a multi detector CT scanner. High resolution axial imaging was performed without the administration of intravenous contrast material. Sagittal and coronal images were reconstructed. Individualized dose optimization techniques were used for this CT. COMPARISON: None. FINDINGS: FRONTAL SINUSES: Some mucosal thickening in the anterior aspect of the frontal sinuses consistent with chronic sinusitis. ETHMOIDAL SINUSES: Normal aeration, without mucosal inflammatory disease. MAXILLARY SINUSES: Normal aeration, without mucosal inflammatory disease. SPHENOIDAL SINUSES: Normal aeration, without mucosal inflammatory disease. There is patency of the bilateral maxillary infundibuli with normal uncinate processes, ethmoid bullae, and hiatus semilunaris. There is a angelica bullosa of the right middle turbinate. Normal bilateral inferior turbinates. Deviation of nasal septum to the left superiorly into the right inferiorly. There is patency of the bilateral nasal airways. The visualized osseous structures are normal. The visualized bilateral orbital contents are normal. CT/Sinus/Facial Bone IMPRESSION: 1. Mild chronic bilateral frontal sinusitis. 2. Stenotic but patent ostiomeatal units bilaterally. 3. S-shaped curvature of the nasal septum with right angelica bullosa. Electronically Signed: Greg Cortes MD at 13:44 EDT Tel , Service support ,
== END ==
PROVIDERS: PCP Internal Medicine; Referring Provider Otolaryngology; Visit Provider Otolaryngology
DX: J32.9 Chronic sinusitis, unspecified (principal)
CPT/HCPCS: 70486

== ENCOUNTER → 2021-07-06 12:10 | Outpatient (CLI) | payer MEDICARE, OTHER, SELFPAY ==
[2021-07-06 15:17] LABS: Absolute Lymphocyte Count 0.57 X10^3/uL (0.83-4.51); Absolute Neutrophil Count 7.5 X10^3/uL (2.0-7.7); Basophil# 0.03 X10^3/uL; Basophil% 0.4 % (0-1); Eosinophil# 0.02 X10^3/uL; Eosinophils% 0.2 % (0-5); Hematocrit 41.9 % (40-54); Hemoglobin 13.2 g/dL (13.0-16.5); Lymphocyte # 0.57 X10^3/ul (0.83-4.51); Lymphocyte % 6.8 % (19-41); Mean Corp Hgb Conc 31.5 g/dL (32-36); Mean Corpuscular Hgb 29.6 pg (27.0-32.0); Mean Corpuscular Volume 93.9 fL (80-94); Mean Platelet Vol. 10.4 fl (6.2-12.0); Monocyte# 0.31 X10^3/uL; Monocyte% 3.7 % (0-10); NRBC Flagged by Analyzer 0 % (0-5); Neutrophil # 7.47 X10^3/uL (2.7-7.7); Neutrophil % 88.5 % (47-70); POSITIVE DIFFERENTIAL YES; Platelet Count 249 K/mm3 (150-450); RBC Distribution Width SD 48.1 fl (35.1-43.9); Red Blood Count 4.46 M/mm3 (4.6-6.2); White Blood Count 8.4 K/mm3 (4.4-11.0)
[2021-07-06 15:19] LABS: Differential Indicated SCAN CRITERIA MET
[2021-07-06 15:49] LABS: Anisocytosis RARE; Platelet Estimate ADEQUATE (ADEQ); Platelet Morphology LARGE; Red Cell Morphology N CHROM NORMAL (NORM C&C)
[2021-07-06 15:50] LABS: Macrocytosis RARE
[2021-07-06 16:22] LABS: ALB/GLOB Ratio 1.1 RATIO (0.9-2.4); AST(SGOT) 24 U/L (15-37); Alanine Aminotransfer ALT/SGPT 30 U/L (16-61); Albumin, Serum 3.7 g/dL (3.2-5.0); Alkaline Phosphatase 113 U/L (45-117); Anion Gap 8 (5-15); BUN 14 mg/dL (7-18); BUN/Creat Ratio 13.9 RATIO (10-20); Calcium,Total 9.3 mg/dL (8.5-10.1); Chloride 104 mmol/L (98-107); Creatinine, Serum 1.01 mg/dL (0.70-1.30); EST Glomerular Filtration Rate 77 mL/min (>60); Est Glom Filt Rate - Afr Amer 93 mL/min (>60); Globulin 3.3 g/dL (2.2-4.2); Glucose 110 mg/dL (74-106); Potassium 3.6 mmol/L (3.5-5.1); Sodium Level 141 mmol/L (136-145)
== END ==
PROVIDERS: PCP Internal Medicine; Referring Provider Internal Medicine Rheumatology; Visit Provider Internal Medicine Rheumatology
DX: M06.4 Inflammatory polyarthropathy (principal); Z79.899 Other long term (current) drug therapy; M19.041 Primary osteoarthritis, right hand; I10 Essential (primary) hypertension; E78.5 Hyperlipidemia, unspecified; J44.9 Chronic obstructive pulmonary disease, unspecified; Z85.46 Personal history of malignant neoplasm of prostate; M81.0 Age-related osteoporosis without current pathological fracture
CPT/HCPCS: 36415; 80053; 85025

== ENCOUNTER → 2022-01-20 | Outpatient (CLI) | payer MEDICARE, SELFPAY ==
--- NOTE | 2022-01-20 10:59 | RAD_ITS ---
EXAM: XR LEFT SHOULDER COMPLETE, 2 OR MORE VIEWS CLINICAL INDICATION: PAIN TECHNIQUE: Two or more views of the left shoulder. This report was created using [employer] report generation technology. COMPARISON: None. FINDINGS: BONES/JOINTS: Unremarkable. No acute fracture. No subluxation. Normal alignment. Preservation of the joint space. No sclerotic or destructive changes observed. SOFT TISSUES: Unremarkable. No soft tissue swelling or gas. No radiopaque foreign body. RAD/Shoulder min 2 Views IMPRESSION: Negative left shoulder x-rays. Electronically Signed: Lj Merrill MD at 15:28 EDT ,
--- NOTE | 2022-01-20 10:59 | RAD_ITS ---
EXAM: XR RIGHT SHOULDER COMPLETE, 2 OR MORE VIEWS CLINICAL INDICATION: PAIN TECHNIQUE: Two or more views of the right shoulder. This report was created using [employer] report generation technology. COMPARISON: None. FINDINGS: BONES/JOINTS: There is narrowing of the glenohumeral joint. No acute fracture. No subluxation. Normal alignment. No sclerotic or destructive changes observed. SOFT TISSUES: Unremarkable. No soft tissue swelling or gas. No radiopaque foreign body. RAD/Shoulder min 2 Views IMPRESSION: Degenerative changes with narrowing of the glenohumeral joint. There are no acute osseous abnormalities. Electronically Signed: Lj Merrill MD at 15:33 EDT ,
[2022-01-21 14:09] LABS: Red Blood Cell Count Test/G6PD 4.16 x10E6/uL (4.14-5.80)
[2022-01-21 16:50] LABS: G6PD Quant Test 311 (127-427)
== END | disposition home or self-care (01) ==
LOC: MTLAB 10:57
PROVIDERS: PCP Internal Medicine; Referring Provider Internal Medicine Rheumatology; Visit Provider Internal Medicine Rheumatology
DX: M06.4 Inflammatory polyarthropathy (principal); M81.0 Age-related osteoporosis without current pathological fracture
CPT/HCPCS: 36415; 73030; 82955

== ENCOUNTER → 2022-02-26 | Outpatient (CLI) | payer BC, SELFPAY ==
[2022-02-26 15:27] LABS: International Normalized Ratio 1.1
[2022-02-26 15:38] LABS: Absolute Lymphocyte Count 0.94 X10^3/uL (0.83-4.51); Absolute Neutrophil Count 3.7 X10^3/uL (2.0-7.7); Basophil# 0.05 X10^3/uL; Basophil% 0.9 % (0-1); Eosinophil# 0.12 X10^3/uL; Eosinophils% 2.3 % (0-5); Hematocrit 38.9 % (40-54); Lymphocyte # 0.94 X10^3/ul (0.83-4.51); Lymphocyte % 17.7 % (19-41); Mean Corp Hgb Conc 30.8 g/dL (32-36); Mean Corpuscular Hgb 29.5 pg (27.0-32.0); Mean Corpuscular Volume 95.6 fL (80-94); Mean Platelet Vol. 10.2 fl (6.2-12.0); Monocyte# 0.47 X10^3/uL; Monocyte% 8.9 % (0-10); NRBC Flagged by Analyzer 0 % (0-5); Neutrophil % 69.6 % (47-70); Platelet Count 203 K/mm3 (150-450); Red Blood Count 4.07 M/mm3 (4.6-6.2); White Blood Count 5.3 K/mm3 (4.4-11.0)
[2022-02-26 15:43] LABS: Erythrocyte Sedimentation Rate 22 mm/hr (0-20)
[2022-02-26 15:55] LABS: AST(SGOT) 20 U/L (15-37); Alanine Aminotransfer ALT/SGPT 24 U/L (16-61); Albumin, Serum 3.5 g/dL (3.2-5.0); Alkaline Phosphatase 152 U/L (45-117); Anion Gap 4 (5-15); BUN 12 mg/dL (7-18); BUN/Creat Ratio 17.7 RATIO (10-20); CRP 9.68 mg/L (0.0-3.0); Calcium,Total 9.1 mg/dL (8.5-10.1); Chloride 109 mmol/L (98-107); Creatinine, Serum 0.68 mg/dL (0.70-1.30); EST Glomerular Filtration Rate 121 mL/min (>60); Est Glom Filt Rate - Afr Amer 147 mL/min (>60); Globulin 3.6 g/dL (2.2-4.2); Glucose 82 mg/dL (74-106); LDH 205 U/L (87-241); Potassium 3.3 mmol/L (3.5-5.1); Protein, Total 7.1 g/dL (6.4-8.2); Sodium Level 143 mmol/L (136-145)
[2022-03-01 15:38] LABS: Anti-Mitochondrial AB <20.0 Units (0.0-20.0)
[2022-03-01 16:08] LABS: Endomysial Antibody IgA Negative (Negative)
[2022-03-01 17:16] LABS: Immunoglobulin A 118 mg/dL (61-437); t-Transglutaminase IgA <2 U/mL (0-3)
[2022-03-04 22:06] LABS: Albumin 3.2 g/dL (2.9-4.4); Alpha-1-Globulins 0.3 g/dL (0.0-0.4); Alpha-2-Globulins 0.8 g/dL (0.4-1.0); Angiotensin Convert Enzyme 30 U/L (14-82); Ceruloplasmin 22.3 mg/dL (16.0-31.0); Cytoplasmic Ab (C-ANCA) <1:20 titer (Neg:<1:20); Gamma Globulin 1.3 g/dL (0.4-1.8); Immunoglobulin A 117 mg/dL (61-437); Immunoglobulin E 6 IU/mL (6-495); Immunoglobulin G 986 mg/dL (603-1613); Immunoglobulin M 193 mg/dL (15-143); PROEL- TOTAL PROTEIN 6.3 g/dL (6.0-8.5)
[2022-03-05 10:10] LABS: Anti-Smooth Muscle ABS 28 Units (0-19); Copper, Serum or Plasma 96 ug/dL (69-132); Haptoglobin 262 mg/dL (34-355); Perinuclear Ab (P-ANCA) <1:20 titer (Neg:<1:20)
== END | disposition home or self-care (01) ==
LOC: LAB 14:13
PROVIDERS: PCP Internal Medicine; Referring Provider Nurse Practitioner Adult Health; Visit Provider Nurse Practitioner Adult Health
DX: K91.1 Postgastric surgery syndromes (principal); K76.0 Fatty (change of) liver, not elsewhere classified
CPT/HCPCS: 36415; 80053; 82140; 82164; 82390; 82525; 82784; 82785; 83010; 83516; 83615; 84165; 85025; 85610; 85652; 86140; 86255; 86256; 86334

== ENCOUNTER 2022-03-01 08:16 | Outpatient (CLI) | payer MEDICARE, SELFPAY ==
[2022-03-03 17:41] LABS: Calprotectin, Stool 142 ug/g (0-120)
== END 2022-03-01 23:59 | disposition home or self-care (01) ==
LOC: LABSPEC 08:19
PROVIDERS: PCP Internal Medicine; Referring Provider Nurse Practitioner Adult Health; Visit Provider Nurse Practitioner Adult Health
DX: D84.9 Immunodeficiency, unspecified (principal); K58.9 Irritable bowel syndrome, unspecified; K91.1 Postgastric surgery syndromes
CPT/HCPCS: 83630; 83993; 87177; 87209; 87329; 87493; 87506

== ENCOUNTER → 2022-06-03 | Outpatient (CLI) | payer MEDICARE, SELFPAY ==
[2022-06-03 15:21] LABS: Absolute Lymphocyte Count 0.85 X10^3/uL (0.83-4.51); Absolute Neutrophil Count 4.5 X10^3/uL (2.0-7.7); Basophil# 0.05 X10^3/uL; Basophil% 0.8 % (0-1); Eosinophil# 0.12 X10^3/uL; Hematocrit 35.8 % (40-54); Hemoglobin 11.5 g/dL (13.0-16.5); Lymphocyte # 0.85 X10^3/ul (0.83-4.51); Lymphocyte % 14.2 % (19-41); Mean Corp Hgb Conc 32.1 g/dL (32-36); Mean Corpuscular Hgb 30.6 pg (27.0-32.0); Mean Corpuscular Volume 95.2 fL (80-94); Mean Platelet Vol. 10.2 fl (6.2-12.0); Monocyte# 0.44 X10^3/uL; Monocyte% 7.4 % (0-10); NRBC Flagged by Analyzer 0 % (0-5); Neutrophil % 75.3 % (47-70); Platelet Count 239 K/mm3 (150-450); RBC Distribution Width CV 14.3 % (11.6-14.6); RBC Distribution Width SD 49.3 fl (35.1-43.9); Red Blood Count 3.76 M/mm3 (4.6-6.2)
[2022-06-03 16:04] LABS: AST(SGOT) 16 U/L (15-37); Alanine Aminotransfer ALT/SGPT 21 U/L (16-61); Albumin, Serum 3.3 g/dL (3.2-5.0); Alkaline Phosphatase 148 U/L (45-117); Anion Gap 4 (5-15); BUN 13 mg/dL (7-18); BUN/Creat Ratio 15.9 RATIO (10-20); Calcium,Total 8.9 mg/dL (8.5-10.1); Chloride 107 mmol/L (98-107); Creatinine, Serum 0.82 mg/dL (0.70-1.30); EST Glomerular Filtration Rate 98 mL/min (>60); Est Glom Filt Rate - Afr Amer 118 mL/min (>60); Globulin 3.4 g/dL (2.2-4.2); Glucose 88 mg/dL (74-106); Potassium 3.6 mmol/L (3.5-5.1); Protein, Total 6.7 g/dL (6.4-8.2); Sodium Level 142 mmol/L (136-145)
== END | disposition home or self-care (01) ==
LOC: MTLAB 13:17
PROVIDERS: PCP Internal Medicine; Referring Provider Internal Medicine Rheumatology; Visit Provider Internal Medicine Rheumatology
DX: M06.4 Inflammatory polyarthropathy (principal); J44.9 Chronic obstructive pulmonary disease, unspecified; Z79.899 Other long term (current) drug therapy; M19.041 Primary osteoarthritis, right hand; M65.341 Trigger finger, right ring finger; E78.5 Hyperlipidemia, unspecified; Z85.46 Personal history of malignant neoplasm of prostate; M81.0 Age-related osteoporosis without current pathological fracture; I10 Essential (primary) hypertension
CPT/HCPCS: 36415; 80053; 85025

== ENCOUNTER 2022-06-08 10:44 | Day surgery (SDC) | payer MEDICARE, SELFPAY ==
[2022-06-08 11:24] VITALS: BP 128/61; PULSE 80; RESP 18; TEMP 36.6; O2SAT 94; BMI 23.8
[2022-06-08] MEDS: Lactated Ringers 1,000 ML 15 ML IV (11:30)
--- NOTE | 2022-06-08 11:50 | HP.PCM_ITS ---
History and Physical Date of Admission: 06/08/22 RICKY OJEDA, is a 77 M who presents to the office today accompanied by his Corinne, would like to schedule screening colonoscopy. Hx of colon polyps, didn't have any polyps last colonoscopy which was 2018 at [facility], was told to get repeat in 2 yrs. Rectosigmoid colon biopsy: chronic active colitis with reactive epithelial changes. He had COVID in 09/2020 and 09/2021. Change in bowels since COVID infection. Within 30 minutes of eating or drinking he has urgent BM, can be loose, can have cramps. Has had some accidents. Lots of gas. He did have a bout of constipation some time since he had COVID, took Miralax, had to strain, then had bright red blood which he attributed to hemorrhoids. Has anal stenosis so stools are thin, but getting better recently. In fact, the bowels have been less bothersome recently--this may be since he was started on sulfasalazine BID for RA. Fatty liver on 11/05/21 RUQ US which was done for elevated alkaline phosphatase. He isn't thrilled to have workup/treatment for another condition (fatty liver). Not able to put on the weight he lost during COVID. Muscles are weak. No nausea, vomiting, heartburn, dysphagia. No abd pain other than the cramps assoc with diarrhea. ROS Const Constitutional: No fatigue ENT ENT: Positive for dizziness/vertigo; No difficulty swallowing Gastro GI: Positive for bloating and excessive flatus; No abdominal pain, belching, change in bowel habits, change in stool character, coffee ground emesis, constipation, cramping, diarrhea, heartburn, difficulty swallowing, feeling full early, incontinent of stools, Vomiting blood/hemateme sis, Blood in stool, loose stools, Black,tarry stools, nausea/dyspepsia, pain with swallowing, vomiting or other Musc Musculoskeletal: Positive for joint pain, back pain, stiffness and Arthritis Skin Skin: No yellowing of the eye or itchy eyes Psych Psychiatric: No anxiety and No depression Endo Endocrine: No fatigue Aller/Imm Allergy/Immunologic: No itchy eyes Raymundo/Lymp Hematologic/Lymphatic: Positive for easy bruising; No easy bleeding Exam Const General: cooperative, healthy appearing, comfortable and well developed [facility] Head: normal to inspection Eyes General: appearance normal, both eyes and all related structures Resp Effort & Inspection: normal respiratory effort GI Inspection: normal to inspection Palpation: soft, no hepatosplenomegaly, no masses and nontender Quality Reporting Tobacco Screening ([facility] 138) Smoking Status: Former smoker Assessment and Plan Assessment and Plan (1) Non-specific colitis: ?Plan: 77 yr old male with dumping syndrome since having COVID 1.5 yrs ago; notes he probably had milder version of his GI symptoms prior to that. Significant gas, urgent diarrhea with cramps post prandial. Gallbladder normal on RUQ US. Interesting that his symptoms have improved since starting sulfasalazine for RA. Will check inflammatory markers, other biochemical w/u for IBD as well as fatty liver, stool tests for infection and inflammation. Would like to hold off on li gurpreet elastography for now. He will be scheduled for colonoscopy. He declines treatment at this time for the bowel issues; ok with getting w/u and then deciding. I'll contact him with results and next step. (2) Dumping syndrome: ?Status:?Acute (3) Fatty liver: ?Status:?Acute (4) Hx of colonic polyps: ?Status:?Acute ? ? ? Orders: Orders Comprehensive Metabolic Profil Today K91.1 - Postgastric surgery syndromes ? CRP Today K91.1 - Postgastric surgery syndromes ? LDH Today K91.1 - Postgastric surgery syndromes ? CBC W/Diff, Automated Today K52.9 - Noninfective gastroenteritis and colitis, unspecified, K91.1 - Postgastric surgery syndromes ? Erythrocyte Sed Rate Today K91.1 - Postgastric surgery syndromes ? Calprotectin, Stool Today K91.1 - Postgastric surgery syndromes ? Ova and Parasites 8623 Today K58.9 - Irritable bowel syndrome without diarrhea, K91.1 - Postgastric surgery syndromes ? CDIFF (PCR) Today K91.1 - Postgastric surgery syndromes ? ENTERIC PATHOGEN PANEL STOOL Today D84.9 - Immunodeficiency, unspecified, K58.9 - Irritable bowel syndrome without diarrhea, K91.1 - Postgastric surgery syndromes ? Stool Lactoferrin/WBC Today K91.1 - Postgastric surgery syndromes ? ANCA Today K91.1 - Postgastric surgery syndromes ? Celiac Disease Profile Today K91.1 - Postgastric surgery syndromes ? Immunoglobulins G/A/M/E Today K91.1 - Postgastric surgery syndromes ? Giardia Lamblia, Stool EIA Today K91.1 - Postgastric surgery syndromes ? HEATHER + Protein Elect, Serum Today K91.1 - Postgastric surgery syndromes ? Anti-Mitochondrial AB Today K76.0 - Fatty (change of) liver, not elsewhere classified, K91.1 - Postgastric surgery syndromes ? Angiotensin Convert Enzyme Today K76.0 - Fatty (change of) liver, not elsewhere classified, K91.1 - Postgastric surgery syndromes ? Anti-Smooth Muscle ABS Today K76.0 - Fatty (change of) liver, not elsewhere classified, K91.1 - Postgastric surgery syndromes ? Ceruloplasmin Today K76.0 - Fatty (change of) liver, not elsewhere classified, K91.1 - Postgastric surgery syndromes ? Copper, Serum or Plasma Today K76.0 - Fatty (change of) liver, not elsewhere classified, K91.1 - Postgastric surgery syndromes ? Haptoglobin Today K76.0 - Fatty (change of) liver, not elsewhere classified, K91.1 - Postgastric surgery syndromes ? Ammonia Today K76.0 - Fatty (change of) liver, not elsewhere classified, K91.1 - Postgastric surgery syndromes ? Prothrombin Time w/INR Today K76.0 - Fatty (change of) liver, not elsewhere classified ? I have re-examined the patient. There are no clinical changes since date of exam.
--- NOTE | 2022-06-08 12:00 | COLBX_PTH ---
PATIENT: RICKY OJEDA LOC: EN U#:[id number] AGE/SX: 77/M ROOM: RE06/08/[address]: Dr. Tristin Wallace DO : 1945 BED: DIS: 06/08/2022 SPEC #: [id number] RECD: 06/08/22 13:16 STATUS: KARAN PAULO #: [id number] SHEILA: 06/08/22 12:[address]: Tristin Wallace DEPT: SURGICAL PATHOLOGY RECD BY: Rashida Portillo ENTERED: 06/08/22 13:37 SP TYPE: COLON BX ANTOLIN DR: Dr. Deni Verma MD Tissues: A - Descending colon B - Sigmoid colon biopsy C - Rectum, NOS Procedures: Surgery Specimen Level IV HEADER OPERATION: Colonoscopy ([facility]), biopsy PRE-OP DIAGNOSIS: Colitis TISSUE SUBMITTED: A ? Descending biopsy, B ? Sigmoid biopsy, C ? Rectal biopsy MICROSCOPIC DIAGNOSIS A. Descending colon, biopsy: Mild melanosis coli. See comment. B. Sigmoid colon, biopsy: Chronic active colitis pattern of injury with minimal activity. See comment. C. Rectum, biopsy: Chronic active colitis pattern of injury with minimal activity. AM:[place] 06/09/2022 COMMENT A. Neither hyperplastic nor adenomatous change is present. Clinical correlation is suggested. B. Sections show glandular distortion, expansion of lamina propria by chronic inflammatory cells, focal cryptitis and crypt abscesses. There is no evidence of dysplasia. Clinical correlation is necessary. MICROSCOPIC DESCRIPTION Slides are reviewed. GROSS DESCRIPTION A - Received in fixative is one container labeled with the patient's name and designated descending biopsy. two irregular fragments of light li soft tissue that in aggregate measure 0.5 x 0.2 x 0.1 cm. The specimen is totally submitted in one cassette. B - Received in fixative is one container labeled with the patient's name and designated sigmoid biopsy. The specimen consists of multiple irregular fragments of light li soft tissue that in aggregate measure 1 x 0.5 x 0.1 cm. The specimen is totally submitted in one cassette. C - Received in fixative is one container labeled with the patient's name and designated rectal biopsy. The specimen consists of multiple irregular fragments of light li soft tissue that in aggregate measure 1 x 0.3 x 0.1 cm. The specimen is totally submitted in one cassette. / SJ:rg 06/08/2022 TC:2 CPT: 07296 x3
[2022-06-08 13:10] VITALS: BP 128/61; BP 133/75; PULSE 82; RESP 16; TEMP 36.5; O2SAT 98
[2022-06-08 13:15] VITALS: BP 109/67; BP 128/61; PULSE 88; RESP 16; O2SAT 100
--- NOTE | 2022-06-08 13:18 | OP.COLON_ITS ---
Patient Name: Waqas Moore Procedure Date: 06/08/2022 12:34 PM Date of : 1945 Age: 77 Procedure: Colonoscopy Indications: Left-sided chronic ulcerative colitis Providers: Tristin Wallace DO Medicines: Propofol per Anesthesia, Monitored Anesthesia Care Patient Profile: Last Colonoscopy: 5 years ago. Complications: No immediate complications. Procedure: Pre-Anesthesia Assessment: - Prior to the procedure, a History and Physical was performed, and patient medications and allergies were reviewed. The patient is competent. The risks and benefits of the procedure and the sedation options and risks were discussed with the patient. All questions were answered and informed consent was obtained. Patient identification and proposed procedure were verified by the physician in the pre-procedure area. Mental Status Examination: alert and oriented. Airway Examination: normal oropharyngeal airway and neck mobility. Respiratory Examination: clear to auscultation. CV Examination: normal. Prophylactic Antibiotics: The patient does not require prophylactic antibiotics. Prior Anticoagulants: The patient has taken no previous anticoagulant or antiplatelet agents. ASA Grade Assessment: II - A patient with mild systemic disease. After reviewing the risks and benefits, the patient was deemed in satisfactory condition to undergo the procedure. The anesthesia plan was to use monitored anesthesia care (MAC). Immediately prior to administration of medications, the patient was re-assessed for adequacy to receive sedatives. The heart rate, respiratory rate, oxygen saturations, blood pressure, adequacy of pulmonary ventilation, and response to care were monitored throughout the procedure. The physical status of the patient was re-assessed after the procedure. After I obtained informed consent, the scope was passed under direct vision. Throughout the procedure, the patient's blood pressure, pulse, and oxygen saturations were monitored continuously. The colonoscope was introduced through the anus and advanced to the terminal ileum. The colonoscopy was performed without difficulty. The patient tolerated the procedure well. The quality of the bowel preparation was poor. Moderate Sedation: Moderate (conscious) sedation was administered by the endoscopy nurse and supervised by the endoscopist. The following parameters were monitored: oxygen saturation, heart rate, blood pressure, and response to care. Total physician intraservice time was 15 minutes. Scope In: 12:45:51 PM Scope Withdrawal Time 0 hours 9 minutes 28 seconds Scope Out: 1:03:58 PM Total Procedure Duration Time 0 hours 18 minutes 7 seconds Findings: The perianal and digital rectal examinations were normal. Inflammation characterized by congestion (edema), erosions, erythema and aphthous ulcerations was found as small patches surrounded by normal mucosa 1 cm apart. The rectum, the recto-sigmoid colon, the sigmoid colon and the descending colon were spared. This was moderate in severity. Biopsies were taken with a cold forceps for histology. Verification of patient identification for the specimen was done. Biopsies for histology were taken with a cold forceps from the descending colon, sigmoid colon, rectum and rectosigmoid colon for evaluation of microscopic colitis. Multiple small and large-mouthed diverticula were found in the recto-sigmoid colon and sigmoid colon. Impression: - Preparation of the colon was poor. - Colitis. Inflammation was found in the colon 1 cm apart. This was moderate in severity. Biopsied. - Diverticulosis in the recto-sigmoid colon and in the sigmoid colon. Recommendation: - Discharge patient to home. - Resume previous diet. - Continue present medications. - Await pathology results. - Repeat colonoscopy is recommended for surveillance. The colonoscopy date will be determined after pathology results from today's exam become available for review. Procedure Code(s): --- Professional --- 45241, Colonoscopy, flexible; with biopsy, single or multiple 66112, 59, Moderate sedation services provided by the same physician or other qualified health prompt care rn performing the diagnostic or therapeutic service that the sedation supports, requiring the presence of an independent trained observer to assist in the monitoring of the patient's level of consciousness and physiological status; initial 15 minutes of intraservice time, patient age 5 years or older CPT copyright 2017 [employer]. All rights reserved. The codes documented in this report are preliminary and upon hospitalist medical director review may be revised to meet current compliance requirements. Tristin Wallace DO 06/08/2022 1:17:57 PM This report has been signed electronically. Number of Addenda: 0 Note Initiated On: 06/08/2022 12:34 PM
--- NOTE | 2022-06-08 13:19 | OP.CCLET_ITS ---
06/08/2022 Deni Verma [address] [place] [address] Re : Colonoscopy procedure for Waqas Moore Dear Dr. Verma This procedure was performed on Wednesday, June 08, 2022. My impressions and recommendations are as follows: Impressions : - Preparation of the colon was poor. - Colitis. Inflammation was found in the colon 1 cm apart. This was moderate in severity. Biopsied. - Diverticulosis in the recto-sigmoid colon and in the sigmoid colon. Recommendations : - Discharge patient to home. - Resume previous diet. - Continue present medications. - Await pathology results. - Repeat colonoscopy is recommended for surveillance. The colonoscopy date will be determined after pathology results from today's exam become available for review. My findings are described in the full procedure note, which is enclosed. If I can be of further assistance, please feel free to contact me at . Sincerely, Tristin Wallace, 06/08/2022 1:17:57 PM This report has been signed electronically.
[2022-06-08 13:20] VITALS: BP 128/61; BP 128/74; PULSE 84; RESP 16; O2SAT 97
[2022-06-08 13:25] VITALS: BP 116/77; BP 128/61; PULSE 80; RESP 17; TEMP 36.3; O2SAT 96
[2022-06-08 13:38] VITALS: BP 128/61
== END 2022-06-08 13:47 | disposition home or self-care (01) ==
LOC: EN 10:49 → AC 11:08
PROVIDERS: PCP Internal Medicine; Referring Provider Internal Medicine; Visit Provider Internal Medicine Gastroenterology
PROC: 0DJD8ZZ Inspection of Lower Intestinal Tract, Via Natural or Artificial Opening Endoscopic (ICD-10-PCS; CPT 45378; principal; 2022-06-08 11:55)
DX: K52.9 Noninfective gastroenteritis and colitis, unspecified (principal); M05.19 Rheumatoid lung disease with rheumatoid arthritis of multiple sites; J43.9 Emphysema, unspecified; K51.90 Ulcerative colitis, unspecified, without complications; K57.30 Diverticulosis of large intestine without perforation or abscess without bleeding; K76.0 Fatty (change of) liver, not elsewhere classified; K63.89 Other specified diseases of intestine; I10 Essential (primary) hypertension; K91.1 Postgastric surgery syndromes; E78.00 Pure hypercholesterolemia, unspecified; M81.0 Age-related osteoporosis without current pathological fracture; M19.90 Unspecified osteoarthritis, unspecified site; Z86.16 Personal history of COVID-19; Z99.81 Dependence on supplemental oxygen; Z87.891 Personal history of nicotine dependence; Z86.010 Personal history of colon polyps; Z79.899 Other long term (current) drug therapy
CPT/HCPCS: 45380; 87493; 87506; 88305; J7120; J2405

== ENCOUNTER → 2022-06-28 | Outpatient (CLI) | payer MEDICARE, SELFPAY ==
[2022-06-29 07:55] LABS: Hepatitis B Surface Antibody Non-Reactive
[2022-06-30 20:07] LABS: HEPATITIS B SURFACE AG Negative (Negative); Hep C Antibodies 0.1 s/co ratio (0.0-0.9); Hepatitis A IgM Antibody Negative (Negative); Hepatitis B Core AB IgM Negative (Negative); QNTFERON TB Mitogen Value > 10.00 IU/mL (.); QNTFERON TB Nil Value 0.04 IU/mL (.); QNTFERON TB1+ Ag Value 0.02 IU/mL (.); QNTFERON TB2+ Ag Value 0.02 IU/mL (.)
[2022-07-01 17:31] LABS: QNTIFERON TB Positive Criteria Negative (Negative)
== END | disposition home or self-care (01) ==
LOC: LAB 14:48
PROVIDERS: PCP Internal Medicine; Referring Provider Nurse Practitioner Adult Health; Visit Provider Nurse Practitioner Adult Health
DX: K51.90 Ulcerative colitis, unspecified, without complications (principal); R10.9 Unspecified abdominal pain
CPT/HCPCS: 36415; 80074; 86480; 86706

== ENCOUNTER → 2022-08-31 | Outpatient (CLI) | payer MEDICARE, SELFPAY ==
[2022-08-31 12:25] LABS: Absolute Lymphocyte Count 1.24 X10^3/uL (0.83-4.51); Basophil# 0.05 X10^3/uL; Basophil% 0.7 % (0-1); Eosinophil# 0.11 X10^3/uL; Eosinophils% 1.6 % (0-5); Hematocrit 39.5 % (40-54); Hemoglobin 12.5 g/dL (13.0-16.5); Lymphocyte # 1.24 X10^3/ul (0.83-4.51); Lymphocyte % 18.3 % (19-41); Mean Corp Hgb Conc 31.6 g/dL (32-36); Mean Corpuscular Hgb 29.6 pg (27.0-32.0); Mean Corpuscular Volume 93.4 fL (80-94); Mean Platelet Vol. 10.1 fl (6.2-12.0); Monocyte# 0.37 X10^3/uL; Monocyte% 5.5 % (0-10); NRBC Flagged by Analyzer 0 % (0-5); Neutrophil # 4.98 X10^3/uL (2.7-7.7); Neutrophil % 73.5 % (47-70); Platelet Count 232 K/mm3 (150-450); RBC Distribution Width CV 13.6 % (11.6-14.6); Red Blood Count 4.23 M/mm3 (4.6-6.2); White Blood Count 6.8 K/mm3 (4.4-11.0)
[2022-08-31 12:50] LABS: ALB/GLOB Ratio 1.1 RATIO (0.9-2.4); AST(SGOT) 19 U/L (15-37); Alanine Aminotransfer ALT/SGPT 23 U/L (16-61); Albumin, Serum 3.5 g/dL (3.2-5.0); Alkaline Phosphatase 132 U/L (45-117); Anion Gap 5 (5-15); BUN 15 mg/dL (7-18); BUN/Creat Ratio 18.3 RATIO (10-20); Calcium,Total 8.8 mg/dL (8.5-10.1); Chloride 107 mmol/L (98-107); Creatinine, Serum 0.82 mg/dL (0.70-1.30); EST Glomerular Filtration Rate 97 mL/min (>60); Est Glom Filt Rate - Afr Amer 118 mL/min (>60); Globulin 3.2 g/dL (2.2-4.2); Glucose 102 mg/dL (74-106); Potassium 3.7 mmol/L (3.5-5.1); Protein, Total 6.7 g/dL (6.4-8.2); Sodium Level 141 mmol/L (136-145)
== END | disposition home or self-care (01) ==
LOC: MTLAB 09:52
PROVIDERS: PCP Internal Medicine; Referring Provider Internal Medicine Rheumatology; Visit Provider Internal Medicine Rheumatology
DX: Z79.899 Other long term (current) drug therapy (principal); M06.4 Inflammatory polyarthropathy
CPT/HCPCS: 36415; 80053; 85025

== ENCOUNTER → 2022-11-19 | Outpatient (CLI) | payer MEDICARE, SELFPAY ==
[2022-11-19 12:22] LABS: Absolute Lymphocyte Count 1.34 X10^3/uL (0.83-4.51); Absolute Neutrophil Count 3.2 X10^3/uL (2.0-7.7); Basophil# 0.04 X10^3/uL; Basophil% 0.7 % (0-1); Eosinophil# 0.15 X10^3/uL; Eosinophils% 2.8 % (0-5); Hematocrit 40.1 % (40-54); Hemoglobin 12.6 g/dL (13.0-16.5); Lymphocyte # 1.34 X10^3/ul (0.83-4.51); Lymphocyte % 24.6 % (19-41); Mean Corp Hgb Conc 31.4 g/dL (32-36); Mean Corpuscular Hgb 30.4 pg (27.0-32.0); Mean Corpuscular Volume 96.6 fL (80-94); Mean Platelet Vol. 9.9 fl (6.2-12.0); Monocyte# 0.66 X10^3/uL; Monocyte% 12.1 % (0-10); NRBC Flagged by Analyzer 0 % (0-5); Neutrophil # 3.24 X10^3/uL (2.7-7.7); Neutrophil % 59.4 % (47-70); Platelet Count 194 K/mm3 (150-450); RBC Distribution Width CV 14.1 % (11.6-14.6); Red Blood Count 4.15 M/mm3 (4.6-6.2); White Blood Count 5.5 K/mm3 (4.4-11.0)
[2022-11-19 12:51] LABS: ALB/GLOB Ratio 1.1 RATIO (0.9-2.4); AST(SGOT) 17 U/L (15-37); Alanine Aminotransfer ALT/SGPT 25 U/L (16-61); Albumin, Serum 3.4 g/dL (3.2-5.0); Alkaline Phosphatase 120 U/L (45-117); Anion Gap 7 (5-15); BUN 15 mg/dL (7-18); BUN/Creat Ratio 19.2 RATIO (10-20); Calcium,Total 8.7 mg/dL (8.5-10.1); Chloride 105 mmol/L (98-107); Creatinine, Serum 0.78 mg/dL (0.70-1.30); EST Glomerular Filtration Rate 103 mL/min (>60); Est Glom Filt Rate - Afr Amer 125 mL/min (>60); Globulin 3.2 g/dL (2.2-4.2); Glucose 88 mg/dL (74-106); Potassium 3.8 mmol/L (3.5-5.1); Protein, Total 6.6 g/dL (6.4-8.2); Sodium Level 143 mmol/L (136-145)
== END | disposition home or self-care (01) ==
LOC: MTLAB 10:42
PROVIDERS: PCP Internal Medicine; Referring Provider Internal Medicine Rheumatology; Visit Provider Internal Medicine Rheumatology
DX: M06.4 Inflammatory polyarthropathy (principal); J44.9 Chronic obstructive pulmonary disease, unspecified; K51.90 Ulcerative colitis, unspecified, without complications; Z79.899 Other long term (current) drug therapy; M19.041 Primary osteoarthritis, right hand; M65.341 Trigger finger, right ring finger; E78.5 Hyperlipidemia, unspecified; Z85.46 Personal history of malignant neoplasm of prostate; M81.0 Age-related osteoporosis without current pathological fracture; I10 Essential (primary) hypertension
CPT/HCPCS: 36415; 80053; 85025

== ENCOUNTER → 2023-01-12 | Outpatient (CLI) | payer MEDICARE, SELFPAY ==
[2023-01-12 10:44] LABS: Erythrocyte Sedimentation Rate 9 mm/hr (0-20)
[2023-01-12 10:47] LABS: CRP 5.66 mg/L (0.0-3.0)
== END | disposition home or self-care (01) ==
PROVIDERS: PCP Internal Medicine; Referring Provider Nurse Practitioner Adult Health; Visit Provider Nurse Practitioner Adult Health
DX: K51.90 Ulcerative colitis, unspecified, without complications (principal)
CPT/HCPCS: 36415; 85652; 86140

== ENCOUNTER → 2023-01-14 | Outpatient (CLI) | payer MEDICARE, SELFPAY ==
[2023-01-20 21:07] LABS: Calprotectin, Stool 185 ug/g (0-120)
== END | disposition home or self-care (01) ==
LOC: LABSPEC 10:01
PROVIDERS: PCP Internal Medicine; Referring Provider Nurse Practitioner Adult Health; Visit Provider Nurse Practitioner Adult Health
DX: K51.90 Ulcerative colitis, unspecified, without complications (principal)
CPT/HCPCS: 83630; 83993

== ENCOUNTER → 2023-02-11 | Outpatient (CLI) | payer MEDICARE, SELFPAY ==
[2023-02-11 11:19] LABS: Absolute Lymphocyte Count 1.24 X10^3/uL (0.83-4.51); Absolute Neutrophil Count 4.5 X10^3/uL (2.0-7.7); Basophil# 0.04 X10^3/uL; Basophil% 0.6 % (0-1); Eosinophil# 0.06 X10^3/uL; Eosinophils% 0.9 % (0-5); Hematocrit 38.4 % (40-54); Hemoglobin 11.9 g/dL (13.0-16.5); Lymphocyte # 1.24 X10^3/ul (0.83-4.51); Lymphocyte % 19.1 % (19-41); Mean Corpuscular Hgb 29.9 pg (27.0-32.0); Mean Corpuscular Volume 96.5 fL (80-94); Mean Platelet Vol. 10.5 fl (6.2-12.0); Monocyte# 0.62 X10^3/uL; Monocyte% 9.5 % (0-10); NRBC Flagged by Analyzer 0 % (0-5); Neutrophil # 4.51 X10^3/uL (2.7-7.7); Neutrophil % 69.4 % (47-70); Platelet Count 206 K/mm3 (150-450); RBC Distribution Width CV 13.5 % (11.6-14.6); RBC Distribution Width SD 47.8 fl (35.1-43.9); Red Blood Count 3.98 M/mm3 (4.6-6.2); White Blood Count 6.5 K/mm3 (4.4-11.0)
[2023-02-11 11:46] LABS: AST(SGOT) 23 U/L (15-37); Alanine Aminotransfer ALT/SGPT 26 U/L (16-61); Albumin, Serum 3.3 g/dL (3.2-5.0); Alkaline Phosphatase 142 U/L (45-117); Anion Gap 4 (5-15); BUN 16 mg/dL (7-18); Calcium,Total 8.4 mg/dL (8.5-10.1); Chloride 110 mmol/L (98-107); EST Glomerular Filtration Rate 117 mL/min (>60); Est Glom Filt Rate - Afr Amer 142 mL/min (>60); Globulin 3.3 g/dL (2.2-4.2); Glucose 92 mg/dL (74-106); Potassium 3.5 mmol/L (3.5-5.1); Protein, Total 6.6 g/dL (6.4-8.2); Sodium Level 140 mmol/L (136-145)
== END | disposition home or self-care (01) ==
LOC: MTLAB 08:59
PROVIDERS: PCP Internal Medicine; Referring Provider Internal Medicine Rheumatology; Visit Provider Internal Medicine Rheumatology
DX: M06.4 Inflammatory polyarthropathy (principal); K51.90 Ulcerative colitis, unspecified, without complications; Z79.899 Other long term (current) drug therapy
CPT/HCPCS: 36415; 80053; 85025

== ENCOUNTER → 2023-04-26 | Outpatient (CLI) | payer MEDICARE, SELFPAY ==
[2023-04-26 12:13] LABS: Erythrocyte Sedimentation Rate 22 mm/hr (0-20)
[2023-04-26 12:15] LABS: Absolute Lymphocyte Count 0.64 X10^3/uL (0.83-4.51); Absolute Neutrophil Count 5.3 X10^3/uL (2.0-7.7); Basophil# 0.03 X10^3/uL; Basophil% 0.5 % (0-1); Eosinophil# 0.08 X10^3/uL; Eosinophils% 1.3 % (0-5); Hematocrit 38.5 % (40-54); Hemoglobin 12.1 g/dL (13.0-16.5); Lymphocyte # 0.64 X10^3/ul (0.83-4.51); Lymphocyte % 10.1 % (19-41); Mean Corp Hgb Conc 31.4 g/dL (32-36); Mean Corpuscular Hgb 29.7 pg (27.0-32.0); Mean Corpuscular Volume 94.6 fL (80-94); Monocyte# 0.21 X10^3/uL; Monocyte% 3.3 % (0-10); NRBC Flagged by Analyzer 0 % (0-5); Neutrophil # 5.33 X10^3/uL (2.7-7.7); Neutrophil % 84.5 % (47-70); Platelet Count 240 K/mm3 (150-450); RBC Distribution Width CV 13.4 % (11.6-14.6); RBC Distribution Width SD 46.5 fl (35.1-43.9); Red Blood Count 4.07 M/mm3 (4.6-6.2); White Blood Count 6.3 K/mm3 (4.4-11.0)
[2023-04-26 13:04] LABS: ALB/GLOB Ratio 0.8 RATIO (0.9-2.4); AST(SGOT) 17 U/L (15-37); Alanine Aminotransfer ALT/SGPT 22 U/L (16-61); Albumin, Serum 3.3 g/dL (3.2-5.0); Alkaline Phosphatase 128 U/L (45-117); Anion Gap 6 (5-15); BUN 14 mg/dL (7-18); BUN/Creat Ratio 19.2 RATIO (10-20); Calcium,Total 8.6 mg/dL (8.5-10.1); Chloride 106 mmol/L (98-107); Creatinine, Serum 0.73 mg/dL (0.70-1.30); EST Glomerular Filtration Rate 111 mL/min (>60); Est Glom Filt Rate - Afr Amer 134 mL/min (>60); Ferritin 185 ng/mL (26-388); Globulin 3.9 g/dL (2.2-4.2); Glucose 105 mg/dL (74-106); Iron Binding Capacity,Total 302 ug/dL (250-450); Potassium 3.7 mmol/L (3.5-5.1); Protein, Total 7.2 g/dL (6.4-8.2); Sodium Level 140 mmol/L (136-145)
[2023-04-27 15:08] LABS: Anti-Smooth Muscle ABS 10 Units (0-19)
== END | disposition home or self-care (01) ==
PROVIDERS: PCP Internal Medicine; Referring Provider Internal Medicine Gastroenterology; Visit Provider Internal Medicine Gastroenterology
DX: K51.90 Ulcerative colitis, unspecified, without complications (principal); K76.0 Fatty (change of) liver, not elsewhere classified
CPT/HCPCS: 36415; 80053; 82728; 83516; 83550; 85025; 85652; 86140

== ENCOUNTER → 2023-04-29 | Outpatient (CLI) | payer MEDICARE, SELFPAY ==
[2023-05-02 22:06] LABS: Pancreatic Elastase, Fecal 144 (>200)
[2023-05-04 01:06] LABS: Calprotectin, Stool 414 ug/g (0-120)
== END | disposition home or self-care (01) ==
LOC: LABSPEC 10:15
PROVIDERS: PCP Internal Medicine; Referring Provider Internal Medicine Gastroenterology; Visit Provider Internal Medicine Gastroenterology
DX: K51.90 Ulcerative colitis, unspecified, without complications (principal); K76.0 Fatty (change of) liver, not elsewhere classified
CPT/HCPCS: 82653; 83630; 83993

== ENCOUNTER → 2023-05-20 | Outpatient (CLI) | payer MEDICARE, SELFPAY ==
--- NOTE | 2023-05-20 15:45 | CT_ITS ---
STUDY: CT ABDOMEN AND PELVIS WITH CONTRAST REASON FOR EXAM: Male, 78 years old. ?IBD and liver disease RADIATION DOSAGE (If Supplied By Facility): CTDIvol = ( 7.47 ) mGy, DLP = ( 633.78 ) mGycm TECHNIQUE: Transaxial images were obtained from the dome of the diaphragm to the symphysis pubis without oral contrast. IV 100mL Isovue-300 was administered. Sagittal and coronal images were reconstructed. Individualized dose optimization techniques were used for this CT. COMPARISON: None. FINDINGS: The visualized lung bases are unremarkable. The visualized portions of the heart are within normal limits. Normal liver. Normal gallbladder and extrahepatic biliary system. Normal spleen. Normal pancreas. Normal bilateral adrenal glands. Right kidney has a large 13 cm cyst of the mid segment. No stones or hydronephrosis. Left kidney has nonobstructing stone in the upper pole. Otherwise unremarkable left kidney. Normal visualized stomach. Normal small intestine. Marked fecal retention throughout the colon. 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 There is diffuse atherosclerotic calcification of the abdominal aorta with elongation and tortuosity, but without a demonstrated aneurysm. Normal inferior vena cava. Normal retroperitoneum. Normal urinary bladder. Normal abdominal wall. There are diffuse degenerative changes of the visualized lumbar spine. CT/Abdomen/Pelvis WITH Contrast IMPRESSION: Marked fecal retention. 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 Nonobstructing left renal stones. Large right renal cyst. Electronically Signed: Yair Ribera MD at 21:05 EDT ,
== END | disposition home or self-care (01) ==
PROVIDERS: PCP Internal Medicine; Referring Provider Internal Medicine Gastroenterology; Visit Provider Internal Medicine Gastroenterology
DX: K76.0 Fatty (change of) liver, not elsewhere classified (principal); K51.90 Ulcerative colitis, unspecified, without complications
CPT/HCPCS: 74177; Q9967

== ENCOUNTER → 2023-08-05 | Outpatient (CLI) | payer MEDICARE, SELFPAY ==
[2023-08-05 12:27] LABS: Absolute Lymphocyte Count 1.32 X10^3/uL (0.83-4.51); Basophil# 0.05 X10^3/uL; Eosinophil# 0.07 X10^3/uL; Eosinophils% 1.4 % (0-5); Hematocrit 40.8 % (40-54); Hemoglobin 12.6 g/dL (13.0-16.5); Lymphocyte # 1.32 X10^3/ul (0.83-4.51); Lymphocyte % 26.5 % (19-41); Mean Corp Hgb Conc 30.9 g/dL (32-36); Mean Corpuscular Hgb 29.9 pg (27.0-32.0); Mean Corpuscular Volume 96.7 fL (80-94); Mean Platelet Vol. 10.3 fl (6.2-12.0); Monocyte# 0.51 X10^3/uL; Monocyte% 10.2 % (0-10); NRBC Flagged by Analyzer 0 % (0-5); Neutrophil # 3.01 X10^3/uL (2.7-7.7); Neutrophil % 60.5 % (47-70); Platelet Count 192 K/mm3 (150-450); RBC Distribution Width CV 13.6 % (11.6-14.6); RBC Distribution Width SD 48.1 fl (35.1-43.9); Red Blood Count 4.22 M/mm3 (4.6-6.2)
[2023-08-05 13:19] LABS: AST(SGOT) 25 U/L (15-37); Alanine Aminotransfer ALT/SGPT 25 U/L (16-61); Albumin, Serum 3.5 g/dL (3.2-5.0); Alkaline Phosphatase 113 U/L (45-117); Anion Gap 4 (5-15); BUN 16 mg/dL (7-18); BUN/Creat Ratio 20.3 RATIO (10-20); Calcium,Total 8.5 mg/dL (8.5-10.1); Chloride 109 mmol/L (98-107); Creatinine, Serum 0.79 mg/dL (0.70-1.30); EST Glomerular Filtration Rate 102 mL/min (>60); Est Glom Filt Rate - Afr Amer 123 mL/min (>60); Globulin 3.4 g/dL (2.2-4.2); Glucose 88 mg/dL (74-106); Potassium 3.8 mmol/L (3.5-5.1); Protein, Total 6.9 g/dL (6.4-8.2); Sodium Level 142 mmol/L (136-145)
== END | disposition home or self-care (01) ==
LOC: MTLAB 09:25
PROVIDERS: PCP Internal Medicine; Referring Provider Internal Medicine Rheumatology; Visit Provider Internal Medicine Rheumatology
DX: M06.4 Inflammatory polyarthropathy (principal); Z79.899 Other long term (current) drug therapy; M19.041 Primary osteoarthritis, right hand; M65.341 Trigger finger, right ring finger
CPT/HCPCS: 36415; 80053; 85025

== ENCOUNTER → 2023-10-18 | Outpatient (CLI) | payer MEDICARE, SELFPAY ==
[2023-10-18 12:33] LABS: AST(SGOT) 21 U/L (15-37); Alanine Aminotransfer ALT/SGPT 22 U/L (16-61); Albumin, Serum 3.4 g/dL (3.2-5.0); Alkaline Phosphatase 113 U/L (45-117); Anion Gap 5 (5-15); BUN 13 mg/dL (7-18); BUN/Creat Ratio 17.2 RATIO (10-20); Calcium,Total 8.6 mg/dL (8.5-10.1); Chloride 108 mmol/L (98-107); Cholesterol 128 mg/dL (200); Creatinine, Serum 0.75 mg/dL (0.70-1.30); EST Glomerular Filtration Rate 107 mL/min (>60); Est Glom Filt Rate - Afr Amer 129 mL/min (>60); Globulin 3.4 g/dL (2.2-4.2); Glucose 93 mg/dL (74-106); High Density Lipoprotein 52 mg/dL; Potassium 3.7 mmol/L (3.5-5.1); Protein, Total 6.8 g/dL (6.4-8.2); Sodium Level 144 mmol/L (136-145); Triglycerides 94 mg/dL; Very Low Density Lipoprotein 19 mg/dL (5-40)
[2023-10-18 12:42] LABS: Absolute Lymphocyte Count 1.17 X10^3/uL (0.83-4.51); Absolute Neutrophil Count 3.6 X10^3/uL (2.0-7.7); Basophil# 0.04 X10^3/uL; Basophil% 0.8 % (0-1); Eosinophil# 0.09 X10^3/uL; Eosinophils% 1.7 % (0-5); Hematocrit 38.7 % (40-54); Hemoglobin 12.3 g/dL (13.0-16.5); Lymphocyte # 1.17 X10^3/ul (0.83-4.51); Lymphocyte % 22.2 % (19-41); Mean Corp Hgb Conc 31.8 g/dL (32-36); Mean Corpuscular Hgb 30.5 pg (27.0-32.0); Mean Platelet Vol. 10.2 fl (6.2-12.0); Monocyte# 0.38 X10^3/uL; Monocyte% 7.2 % (0-10); NRBC Flagged by Analyzer 0 % (0-5); Neutrophil # 3.57 X10^3/uL (2.7-7.7); Neutrophil % 67.9 % (47-70); Platelet Count 197 K/mm3 (150-450); RBC Distribution Width CV 13.8 % (11.6-14.6); RBC Distribution Width SD 48.7 fl (35.1-43.9); Red Blood Count 4.03 M/mm3 (4.6-6.2); White Blood Count 5.3 K/mm3 (4.4-11.0)
== END | disposition home or self-care (01) ==
LOC: MTLAB 10:25
PROVIDERS: PCP Internal Medicine; Referring Provider Internal Medicine Rheumatology; Visit Provider Internal Medicine Rheumatology
DX: M06.4 Inflammatory polyarthropathy (principal); Z79.899 Other long term (current) drug therapy; M19.041 Primary osteoarthritis, right hand; M65.341 Trigger finger, right ring finger; E78.00 Pure hypercholesterolemia, unspecified
CPT/HCPCS: 36415; 80053; 80061; 85025

== ENCOUNTER → 2024-03-29 | Outpatient (CLI) | payer MEDICARE, SELFPAY ==
[2024-03-29 10:24] LABS: Absolute Lymphocyte Count 0.68 X10^3/uL (0.83-4.51); Absolute Neutrophil Count 9.1 X10^3/uL (2.0-7.7); Basophil# 0.04 X10^3/uL; Basophil% 0.4 % (0-1); Eosinophil# 0.02 X10^3/uL; Eosinophils% 0.2 % (0-5); Hematocrit 42.5 % (40-54); Hemoglobin 13.4 g/dL (13.0-16.5); Lymphocyte # 0.68 X10^3/ul (0.83-4.51); Lymphocyte % 6.6 % (19-41); Mean Corp Hgb Conc 31.5 g/dL (32-36); Mean Corpuscular Hgb 30.7 pg (27.0-32.0); Mean Corpuscular Volume 97.3 fL (80-94); Mean Platelet Vol. 9.6 fl (6.2-12.0); Monocyte# 0.26 X10^3/uL; Monocyte% 2.5 % (0-10); NRBC Flagged by Analyzer 0 % (0-5); Neutrophil % 88.8 % (47-70); Platelet Count 180 K/mm3 (150-450); RBC Distribution Width CV 14.2 % (11.6-14.6); Red Blood Count 4.37 M/mm3 (4.6-6.2); White Blood Count 10.3 K/mm3 (4.4-11.0)
[2024-03-29 10:51] LABS: Vitamin B12 325 pg/mL (211-911)
[2024-03-29 11:02] LABS: AST(SGOT) 19 U/L (15-37); Alanine Aminotransfer ALT/SGPT 36 U/L (16-61); Albumin, Serum 3.4 g/dL (3.2-5.0); Alkaline Phosphatase 110 U/L (45-117); Anion Gap 3 (5-15); BUN 17 mg/dL (7-18); BUN/Creat Ratio 18.4 RATIO (10-20); Calcium,Total 9.1 mg/dL (8.5-10.1); Chloride 105 mmol/L (98-107); Creatinine, Serum 0.92 mg/dL (0.70-1.30); EST Glomerular Filtration Rate 84 mL/min (>60); Est Glom Filt Rate - Afr Amer 102 mL/min (>60); Globulin 3.5 g/dL (2.2-4.2); Glucose 103 mg/dL (74-106); Potassium 3.8 mmol/L (3.5-5.1); Protein, Total 6.9 g/dL (6.4-8.2); Sodium Level 138 mmol/L (136-145); Thyroid Stim Hormone (TSH) 1.01 uIU/mL (0.358-3.74)
== END | disposition home or self-care (01) ==
LOC: LAB 10:05
PROVIDERS: PCP Internal Medicine; Referring Provider Internal Medicine Rheumatology; Visit Provider Internal Medicine Rheumatology
DX: M06.4 Inflammatory polyarthropathy (principal); R53.83 Other fatigue; Z79.899 Other long term (current) drug therapy
CPT/HCPCS: 36415; 80053; 82607; 84443; 85025

== ENCOUNTER → 2024-05-25 | Outpatient (CLI) | payer MEDICARE, SELFPAY ==
[2024-05-25 11:00] LABS: Erythrocyte Sedimentation Rate 7 mm/hr (0-20)
[2024-05-25 12:24] LABS: CPK Total, Creatine Kinase 101 U/L (39-308); CRP 7.05 mg/L (0.0-3.0)
[2024-05-28 14:08] LABS: Aldolase 4.6 U/L (3.3-10.3); Gastrin, Serum < 10 pg/mL (0-115); IgG, Quant 849 mg/dL (603-1613); Immunoglobulin G, Subclass 1 397 mg/dL (248-810); Immunoglobulin G, Subclass 2 271 mg/dL (130-555); Immunoglobulin G, Subclass 3 32 mg/dL (15-102); Immunoglobulin G, Subclass 4 34 mg/dL (2-96)
[2024-05-29 09:09] LABS: Beef <0.10 kU/L (Class 0); Chocolate <0.10 kU/L (Class 0); Codfish <0.10 kU/L (Class 0); Corn <0.10 kU/L (Class 0); Egg, Whole <0.10 kU/L (Class 0); Milk (Cow) <0.10 kU/L (Class 0); Mussels <0.10 kU/L (Class 0); Peanut <0.10 kU/L (Class 0); Pork <0.10 kU/L (Class 0); Salmon <0.10 kU/L (Class 0); Shrimp <0.10 kU/L (Class 0); Soybean <0.10 kU/L (Class 0); Tuna <0.10 kU/L (Class 0); Wheat <0.10 kU/L (Class 0)
== END | disposition home or self-care (01) ==
LOC: LAB 10:12
PROVIDERS: PCP Internal Medicine; Referring Provider Internal Medicine Gastroenterology; Visit Provider Internal Medicine Gastroenterology
DX: K59.1 Functional diarrhea (principal); K51.80 Other ulcerative colitis without complications
CPT/HCPCS: 36415; 82085; 82550; 82746; 82784; 82787; 82941; 85652; 86003; 86005; 86140

== ENCOUNTER → 2024-06-12 | Outpatient (CLI) | payer MEDICARE, SELFPAY ==
[2024-06-12 15:52] LABS: CPK Total, Creatine Kinase 188 U/L (39-308)
[2024-06-19 17:07] LABS: ACHR Recep AB, Blocking 18 % (0-25); Acetylcholine Receptor Binding < 0.03 nmol/L (0.00-0.24)
[2024-06-20 16:11] LABS: ACHR AB Modulating 0 % (0-45)
== END | disposition home or self-care (01) ==
LOC: MTLAB 11:29
PROVIDERS: PCP Internal Medicine; Referring Provider Psychiatry & Neurology Neurology; Visit Provider Psychiatry & Neurology Neurology
DX: R53.1 Weakness (principal)
CPT/HCPCS: 36415; 82550; 83519; 84238

== ENCOUNTER → 2024-07-11 | Outpatient (CLI) | payer MEDICARE, SELFPAY ==
[2024-07-11 13:45] LABS: Absolute Lymphocyte Count 1.25 X10^3/uL (0.83-4.51); Absolute Neutrophil Count 3.6 X10^3/uL (2.0-7.7); Basophil# 0.06 X10^3/uL; Basophil% 1.1 % (0-1); Eosinophil# 0.13 X10^3/uL; Eosinophils% 2.4 % (0-5); Hematocrit 39.3 % (40-54); Lymphocyte # 1.25 X10^3/ul (0.83-4.51); Lymphocyte % 22.8 % (19-41); Mean Corp Hgb Conc 30.5 g/dL (32-36); Mean Corpuscular Volume 98.3 fL (80-94); Mean Platelet Vol. 9.8 fl (6.2-12.0); Monocyte# 0.44 X10^3/uL; NRBC Flagged by Analyzer 0 % (0-5); Neutrophil % 65.5 % (47-70); Platelet Count 227 K/mm3 (150-450); RBC Distribution Width CV 12.7 % (11.6-14.6); RBC Distribution Width SD 45.4 fl (35.1-43.9); White Blood Count 5.5 K/mm3 (4.4-11.0)
[2024-07-11 14:02] LABS: ALB/GLOB Ratio 0.9 RATIO (0.9-2.4); AST(SGOT) 15 U/L (15-37); Alanine Aminotransfer ALT/SGPT 16 U/L (16-61); Albumin, Serum 3.3 g/dL (3.2-5.0); Alkaline Phosphatase 125 U/L (45-117); Anion Gap 4 (5-15); BUN 14 mg/dL (7-18); BUN/Creat Ratio 17.1 RATIO (10-20); Calcium,Total 8.9 mg/dL (8.5-10.1); Chloride 108 mmol/L (98-107); Creatinine, Serum 0.82 mg/dL (0.70-1.30); EST Glomerular Filtration Rate 97 mL/min (>60); Est Glom Filt Rate - Afr Amer 117 mL/min (>60); Globulin 3.5 g/dL (2.2-4.2); Glucose 94 mg/dL (74-106); Potassium 3.6 mmol/L (3.5-5.1); Protein, Total 6.8 g/dL (6.4-8.2); Sodium Level 141 mmol/L (136-145)
== END | disposition home or self-care (01) ==
LOC: MTLAB 11:23
PROVIDERS: PCP Internal Medicine; Referring Provider Internal Medicine Rheumatology; Visit Provider Internal Medicine Rheumatology
DX: M06.4 Inflammatory polyarthropathy (principal); Z79.899 Other long term (current) drug therapy; M19.041 Primary osteoarthritis, right hand; M65.341 Trigger finger, right ring finger
CPT/HCPCS: 36415; 80053; 85025

== ENCOUNTER → 2024-10-10 | Outpatient (CLI) | payer MEDICARE, SELFPAY ==
[2024-10-10 10:16] LABS: Absolute Lymphocyte Count 1.16 X10^3/uL (0.83-4.51); Absolute Neutrophil Count 5.2 X10^3/uL (2.0-7.7); Basophil# 0.08 X10^3/uL; Basophil% 1.1 % (0-1); Eosinophil# 0.13 X10^3/uL; Eosinophils% 1.9 % (0-5); Hematocrit 39.3 % (40-54); Hemoglobin 12.2 g/dL (13.0-16.5); Lymphocyte # 1.16 X10^3/ul (0.83-4.51); Lymphocyte % 16.6 % (19-41); Mean Corpuscular Hgb 29.5 pg (27.0-32.0); Mean Corpuscular Volume 94.9 fL (80-94); Mean Platelet Vol. 10.1 fl (6.2-12.0); Monocyte# 0.37 X10^3/uL; Monocyte% 5.3 % (0-10); NRBC Flagged by Analyzer 0 % (0-5); Neutrophil # 5.21 X10^3/uL (2.7-7.7); Neutrophil % 74.7 % (47-70); Platelet Count 221 K/mm3 (150-450); RBC Distribution Width CV 14.3 % (11.6-14.6); RBC Distribution Width SD 49.3 fl (35.1-43.9); Red Blood Count 4.14 M/mm3 (4.6-6.2)
[2024-10-10 11:07] LABS: ALB/GLOB Ratio 0.9 RATIO (0.9-2.4); AST(SGOT) 18 U/L (15-37); Alanine Aminotransfer ALT/SGPT 17 U/L (16-61); Albumin, Serum 3.6 g/dL (3.2-5.0); Alkaline Phosphatase 127 U/L (45-117); Anion Gap 8 (5-15); BUN 13 mg/dL (7-18); BUN/Creat Ratio 16.1 RATIO (10-20); Calcium,Total 9.8 mg/dL (8.5-10.1); Chloride 105 mmol/L (98-107); Cholesterol 132 mg/dL (200); Creatinine, Serum 0.81 mg/dL (0.70-1.30); EST Glomerular Filtration Rate 98 mL/min (>60); Est Glom Filt Rate - Afr Amer 119 mL/min (>60); Globulin 3.8 g/dL (2.2-4.2); Glucose 86 mg/dL (74-106); High Density Lipoprotein 44 mg/dL; Potassium 3.7 mmol/L (3.5-5.1); Protein, Total 7.4 g/dL (6.4-8.2); Sodium Level 140 mmol/L (136-145); Triglycerides 107 mg/dL; Very Low Density Lipoprotein 21 mg/dL (5-40)
== END | disposition home or self-care (01) ==
LOC: MTLAB 08:54
PROVIDERS: PCP Internal Medicine; Referring Provider Internal Medicine Rheumatology; Visit Provider Internal Medicine Rheumatology
DX: M06.4 Inflammatory polyarthropathy (principal); K51.90 Ulcerative colitis, unspecified, without complications; Z79.899 Other long term (current) drug therapy; E78.00 Pure hypercholesterolemia, unspecified
CPT/HCPCS: 36415; 80053; 80061; 85025

== ENCOUNTER → 2025-01-14 | Outpatient (CLI) | payer MEDICARE, SELFPAY ==
[2025-01-14 12:36] LABS: Absolute Lymphocyte Count 1.47 X10^3/uL (0.83-4.51); Basophil# 0.06 X10^3/uL; Basophil% 0.8 % (0-1); Eosinophil# 0.07 X10^3/uL; Hematocrit 41.7 % (40-54); Hemoglobin 13.7 g/dL (13.0-16.5); Lymphocyte # 1.47 X10^3/ul (0.83-4.51); Lymphocyte % 20.6 % (19-41); Mean Corp Hgb Conc 32.9 g/dL (32-36); Mean Corpuscular Hgb 30.9 pg (27.0-32.0); Mean Corpuscular Volume 94.1 fL (80-94); Mean Platelet Vol. 10.5 fl (6.2-12.0); Monocyte# 0.55 X10^3/uL; Monocyte% 7.7 % (0-10); NRBC Flagged by Analyzer 0 % (0-5); Neutrophil # 4.95 X10^3/uL (2.7-7.7); Neutrophil % 69.6 % (47-70); Platelet Count 241 K/mm3 (150-450); RBC Distribution Width CV 13.2 % (11.6-14.6); RBC Distribution Width SD 45.2 fl (35.1-43.9); Red Blood Count 4.43 M/mm3 (4.6-6.2); White Blood Count 7.1 K/mm3 (4.4-11.0)
[2025-01-14 12:48] LABS: ALB/GLOB Ratio 1.4 RATIO (0.9-2.4); AST(SGOT) 23 U/L (<=37); Alanine Aminotransfer ALT/SGPT 11 U/L (<=46); Albumin, Serum 4.2 g/dL (3.4-4.8); Alkaline Phosphatase 133 U/L (40-129); Anion Gap 12 (5-15); BUN 12 mg/dL (4-19); BUN/Creat Ratio 13.4 RATIO (10-20); Carbon Dioxide 28.6 mmol/L (21.0-32.0); Chloride 102 mmol/L (98-108); Creatinine, Serum 0.87 mg/dL (0.70-1.20); EST Glomerular Filtration Rate 89 (>60); Globulin 2.9 g/dL (2.2-4.2); Glucose 101 mg/dL (70-99); Potassium 3.5 mmol/L (3.3-5.1); Protein, Total 7.2 g/dL (5.9-8.4); Sodium Level 142 mmol/L (133-145); Total Bilirubin 0.49 mg/dL (0.00-1.30)
== END | disposition home or self-care (01) ==
LOC: MTLAB 10:40
PROVIDERS: PCP Internal Medicine; Referring Provider Internal Medicine Rheumatology; Visit Provider Internal Medicine Rheumatology
DX: M06.4 Inflammatory polyarthropathy (principal); Z79.899 Other long term (current) drug therapy
CPT/HCPCS: 36415; 80053; 85025

== ENCOUNTER → 2025-03-27 | Outpatient (CLI) | payer MEDICARE, SELFPAY ==
[2025-03-27 10:29] LABS: Hematocrit 39.4 % (40-54); Hemoglobin 12.7 g/dL (13.0-16.5); Immature Granulocytes Count 0.030 X10^3/uL (0.0-0.0); Mean Corp Hgb Conc 32.2 g/dL (32-36); Mean Corpuscular Volume 96.1 fL (80-94); Mean Platelet Vol. 10.6 fl (6.2-12.0); NRBC Flagged by Analyzer 0 % (0-5); Platelet Count 230 K/mm3 (150-450); RBC Distribution Width CV 13.3 % (11.6-14.6); RBC Distribution Width SD 47.2 fl (35.1-43.9); Red Blood Count 4.10 M/mm3 (4.6-6.2); White Blood Count 6.7 K/mm3 (4.4-11.0)
[2025-03-27 11:47] LABS: AST(SGOT) 19 U/L (<=37); Alanine Aminotransfer ALT/SGPT 12 U/L (<=46); Albumin, Serum 4.0 g/dL (3.4-4.8); Alkaline Phosphatase 144 U/L (40-129); Anion Gap 11 (5-15); BUN 10 mg/dL (4-19); BUN/Creat Ratio 12.0 RATIO (10-20); Calcium,Total 9.5 mg/dL (7.6-11.0); Carbon Dioxide 28.4 mmol/L (21.0-32.0); Chloride 103 mmol/L (98-108); Cholesterol 129 mg/dL (<=200); Globulin 3.0 g/dL (2.2-4.2); Glucose 102 mg/dL (70-99); Low Density Lipoprotein Calc. 62 mg/dL; Potassium 3.6 mmol/L (3.3-5.1); Triglycerides 113 mg/dL; Very Low Density Lipoprotein 23 mg/dL (5-40); cholesterol:hdl ratio screen 2.93
== END | disposition home or self-care (01) ==
LOC: MTLAB 08:37
PROVIDERS: PCP Internal Medicine; Referring Provider Internal Medicine; Visit Provider Internal Medicine
DX: E78.00 Pure hypercholesterolemia, unspecified (principal); M06.4 Inflammatory polyarthropathy; Z79.899 Other long term (current) drug therapy; M19.041 Primary osteoarthritis, right hand; M65.341 Trigger finger, right ring finger
CPT/HCPCS: 36415; 80053; 80061; 85025

== ENCOUNTER → 2025-07-15 | Outpatient (CLI) | payer MEDICARE, SELFPAY ==
[2025-07-15 17:59] LABS: Hematocrit 40.3 % (40-54); Hemoglobin 12.8 g/dL (13.0-16.5); Immature Granulocytes Count 0.020 X10^3/uL (0.0-0.0); Mean Corp Hgb Conc 31.8 g/dL (32-36); Mean Corpuscular Volume 96.0 fL (80-94); Mean Platelet Vol. 10.3 fl (6.2-12.0); NRBC Flagged by Analyzer 0 % (0-5); Platelet Count 240 K/mm3 (150-450); RBC Distribution Width CV 13.7 % (11.6-14.6); RBC Distribution Width SD 47.9 fl (35.1-43.9); Red Blood Count 4.20 M/mm3 (4.6-6.2); White Blood Count 7.1 K/mm3 (4.4-11.0)
[2025-07-15 18:19] LABS: AST(SGOT) 23 U/L (<=37); Alanine Aminotransfer ALT/SGPT 15 U/L (<=46); Albumin, Serum 4.1 g/dL (3.4-4.8); Alkaline Phosphatase 145 U/L (40-129); Anion Gap 12 (5-15); BUN 14 mg/dL (4-19); BUN/Creat Ratio 17.8 RATIO (10-20); Calcium,Total 9.4 mg/dL (7.6-11.0); Carbon Dioxide 26.4 mmol/L (21.0-32.0); Chloride 103 mmol/L (98-108); Globulin 2.7 g/dL (2.2-4.2); Glucose 81 mg/dL (70-99); Potassium 3.6 mmol/L (3.3-5.1)
== END | disposition home or self-care (01) ==
LOC: MTLAB 14:52
PROVIDERS: PCP Internal Medicine; Referring Provider Internal Medicine Rheumatology; Visit Provider Internal Medicine Rheumatology
DX: M06.4 Inflammatory polyarthropathy (principal); Z79.899 Other long term (current) drug therapy; M19.041 Primary osteoarthritis, right hand; M65.341 Trigger finger, right ring finger
CPT/HCPCS: 36415; 80053; 85025